=== PATIENT | female | born 1950 | race Caucasian/White ===

== ENCOUNTER 2020-06-13 11:10 | Outpatient (REF) | payer MEDICARE, OTHER, SELFPAY ==
[2020-06-13 11:38] LABS: MANUAL DIFF FLAG NO
[2020-06-13 11:54] LABS: Basophils Percent Auto 0.4 % (0-2); Eosinophils Absolute Auto 0.1 X10*3/uL (0.0-0.4); Eosinophils Percent Auto 1.8 % (0-4); Hematocrit 43.7 % (37-47); Hemoglobin 13.9 g/dl (12.0-16.0); Imm Gran Abs Auto 0.02 X10*3/uL (0.00-0.03); Imm Gran Pct Auto 0.3 % (0.0-0.4); Lymphocytes Percent Auto 29.4 % (20-40); Mean Corpuscular HGB Conc 31.8 g/dl (31.0-35.0); Mean Corpuscular Hemoglobin 28.7 pg (27.0-33.0); Mean Corpuscular Volume 90.1 fL (80-98); Mean Platelet Volume 10.5 fL (9.4-12.3); Monocytes Absolute Auto 0.7 X10*3/uL (0.1-1.2); Monocytes Percent Auto 9.6 % (2-11); Neutrophils Percent Auto 58.5 % (45-73); Platelet Count 222 X10*3/uL (160-400); Red Blood Count 4.85 X10*6/uL (4.20-5.50); White Blood Count 6.8 X10*3/uL (4.8-10.8)
[2020-06-13 12:29] LABS: Estimated Average Glucose 111 mg/dL; Hemoglobin A1C 136.7238 umol/L; Hemoglobin A1c % 5.5 %
[2020-06-13 12:36] LABS: Vitamin D 25-OH Total 38.7 ng/mL (>30)
[2020-06-13 12:38] LABS: Alanine Aminotransferase 26 U/L (0-31); Albumin Level 4.3 g/dL (3.5-5.0); Alkaline Phosphatase 73 U/L (39-117); Anion Gap 15 (12-20); Aspartate Amino Transferase 23 U/L (5-31); Bilirubin Total 0.6 mg/dL (0.0-1.0); Blood Urea Nitrogen 21 mg/dL (9-16); Calcium 9.3 mg/dL (8.4-10.2); Carbon Dioxide 24 mmol/L (22-29); Chloride 107 mmol/L (96-108); Cholesterol 194 mg/dL; Estimated Glomerular Filt Rate > 60; Glucose Fasting 124 mg/dL (60-99); HDL Cholesterol 45 mg/dL; LDL Cholesterol Calculated 131 mg/dl; Potassium 4.2 mmol/L (3.3-5.1); Sodium 142 mmol/L (135-145); Total Protein 6.7 g/dL (6.5-8.0); Triglycerides 90 mg/dL
== END 2020-06-13 11:11 | disposition home or self-care (01) ==
LOC: HO.10HDL 11:10
PROVIDERS: Visit Provider Internal Medicine
DX: I10 Essential (primary) hypertension (principal); R60.9 Edema, unspecified; J45.909 Unspecified asthma, uncomplicated; K21.9 Gastro-esophageal reflux disease without esophagitis; E78.00 Pure hypercholesterolemia, unspecified; E55.9 Vitamin D deficiency, unspecified; R73.03 Prediabetes
CPT/HCPCS: 36415; 80053; 80061; 82306; 83036; 85025

== ENCOUNTER → 2021-03-13 11:32 | Outpatient (REF) | payer MEDICARE, OTHER, SELFPAY ==
--- NOTE | 2021-03-13 11:40 | CA_ITS ---
Transthoracic Echocardiogram Patient (Last, First, Middle): Emily Cifuentes, Gender: Female Date of : 1950 Age: 71 Procedure Date: 03/13/2021 Procedure Type: Transthoracic Echocardiogram Location: OP Height: 160.02 cm Weight: 119.3 kg BSA: 2.17 m2 Heart Rate: bpm BP: 148 / 78 mmHg Admitting Officer: RICARDO Referring MD: Hernan Lyons MD Order Takers Supervisor: Alexandr Candelaria MD Symptoms: I26.99 S/P PE OTHER PULMONARY EMBOLISM Study Quality: Fair ECG Rhythm: Sinus Conclusions: - 1. Normal LV systolic function with normal filling pattern 2. Mildly dilated right sided chambers with normal RV systolic function 3. Poor visulaization of cardiac valves with normal cardiac valvular Dopplers 4. Normal RVSP Findings Left Ventricle Normal left ventricular size, thickness, and systolic function. The visually estimated ejection fraction is between 60-65%. Spectral Doppler is indicative of a normal filling pattern. Right Ventricle Mildly increased right ventricular cavity size. There is normal right ventricular systolic function. Atria The left atrium is likely dilated. Interatrial shunt cannot be excluded. The right atrium is mildly dilated. Aortic Valve The aortic valve was not well visualized. There is no aortic valve stenosis. There is no aortic valve regurgitation. Mitral Valve The mitral valve was not well visualized. There is trace mitral valve regurgitation. There is no mitral valve stenosis. Pulmonic Valve The pulmonic valve was not well visualized. Tricuspid Valve The tricuspid valve was not well visualized. There is mild tricuspid valve regurgitation. The right ventricular systolic pressure is normal. The right ventricular systolic pressure is 24 mmHg. Normal right atrial pressure. There is no evidence of pulmonary hypertension. Great Vessels All visible segments of the aorta are normal in size. The pulmonary artery was not well visualized. Venous The inferior vena cava is normal in size and collapses greater than 50% with inspiration. Pericardium/Pleural There is no evidence of pericardial effusion. Prior Study Comparison No prior study available for comparison. Measurements 2D Linear Measurements IVSd: 0.86 0.6-0.9/0.6-1.0 cm LVIDd: 5.56 3.9-5.3/4.2-5.9 cm LVIDd Index: 2.56 2.4-3.2/2.2-3.1 cm/m2 LVIDs: 3.88 2.0-3.6 cm LVPWd: 0.87 0.7-1.1 cm Ao Root: 2.90 2.1-3.5 cm LA Diam: 4.00 2.7-3.8/3.0-4.0 cm LAIDs Index: 1.84 1.5-2.3 cm/m2 LV Mass: 223.17 67-162/88-224 g LV Mass Index: 102.84 43-95/49-115 g/m2 LVOT Diam: 1.90 3.0+(-)1.3 cm 2D Systolic Function EF 4C: 61.90 >55% EF 2C: 68.30 >55% EF BiP: 66.20 >55% Mitral Valve MV Pk E: 1.19 MV PK A: 1.02 MV Decel Time: 222.00 E/A: 1.20 E'Lateral: 10.70 E'Medial: 7.51 E/E' Med: 15.80 E/E' Lat: 11.10 PHT: 65.00 MVA PHT: 3.38 Decel Guadalupe: 5.35 Aortic Valve AoV Pk Alberto: 1.78 AoV Mn Alberto: 1.18 AoV VTI: 0.40 AoV Pk Grad: 13.00 Aov Mn Grad: 6.00 HUGH Cont.VTI: 2.33 LVOT LVOT Pk Alberto: 1.33 LVOT Mn Alberto: 0.96 LVOT VTI: 0.33 LVOT Pk Grad: 7.00 LVOT Mn Grad: 4.00 LVOT Diam: 1.90 LVOT Area: 2.84 Diastolic Function MV Pk E: 1.19 MV Pk A: 1.02 E/A: 1.20 E'Medial: 7.51 E/E' Med: 15.80 E' Laterial: 10.70 E/E' Lat: 11.10 Right Ventricle TAPSE (mm): 25.90 TVS' Alberto: 14.40 Tricuspid Valve TR Pk Albetro: 2.29 TR Pk Grad: 21.00 RA Press: 3.00 RVSP: 24.00 Great Vessels Aorta Ao Root-2D: 2.90 2.0-3.7 cm Ao Asc: 2.90 2.1-3.4 cm Ao Arch: 2.90 Updated in Other Vendor System with Status of Final Alexandr Candelaria MD electronically signed on 03/14/2021 7:35:27 AM with status of Final
== END ==
LOC: HO.CARD 11:32
PROVIDERS: PCP Internal Medicine; Visit Provider Internal Medicine
DX: I26.99 Other pulmonary embolism without acute cor pulmonale (principal)
CPT/HCPCS: 93306

== ENCOUNTER 2021-12-11 10:04 | Outpatient (REF) | payer MEDICARE, OTHER, SELFPAY ==
[2021-12-11 10:24] LABS: MANUAL DIFF FLAG NO
[2021-12-11 10:32] LABS: Basophils Percent Auto 0.7 % (0-2); Eosinophils Absolute Auto 0.1 X10*3/uL (0.0-0.4); Eosinophils Percent Auto 2.3 % (0-4); Hematocrit 45.2 % (37.0-47.0); Hemoglobin 14.6 g/dl (12.0-16.0); Imm Gran Abs Auto 0.02 X10*3/uL (0.00-0.03); Imm Gran Pct Auto 0.3 % (0.0-0.4); Lymphocytes Absolute Auto 2.3 X10*3/uL (1.2-4.9); Mean Corpuscular HGB Conc 32.3 g/dl (31.0-35.0); Mean Corpuscular Hemoglobin 28.6 pg (27.0-33.0); Mean Corpuscular Volume 88.6 fL (80.0-98.0); Mean Platelet Volume 10.4 fL (9.4-12.3); Monocytes Absolute Auto 0.7 X10*3/uL (0.1-1.2); Monocytes Percent Auto 10.9 % (2-11); Neutrophils Absolute Auto 2.9 x10*3/uL (2.0-8.3); Neutrophils Percent Auto 47.8 % (45-73); Platelet Count 209 X10*3/uL (160-400); Red Cell Distribution Width 15.3 % (11.0-16.0)
[2021-12-11 11:05] LABS: Alanine Aminotransferase 21 U/L (0-31); Albumin Level 4.2 g/dL (3.5-5.0); Alkaline Phosphatase 71 U/L (39-117); Anion Gap 15 (12-20); Aspartate Amino Transferase 20 U/L (5-31); Bilirubin Total 0.9 mg/dL (0.0-1.0); Blood Urea Nitrogen 19 mg/dL (9-16); C Reactive Protein 0.73 mg/dL (< or = 0.50); Calcium 9.3 mg/dL (8.4-10.2); Carbon Dioxide 24 mmol/L (22-29); Chloride 106 mmol/L (96-108); Estimated Glomerular Filt Rate > 60; Glucose Fasting 114 mg/dL (60-99); Potassium 4.3 mmol/L (3.3-5.1); Sodium 141 mmol/L (135-145); Total Protein 6.6 g/dL (6.5-8.0)
[2021-12-11 14:07] LABS: Appearance Urine Clear; Color Urine Yellow; Glucose Urine UA Negative (Negative); Leukocyte Esterase Urine Negative (Negative); Nitrite Urine Negative (Negative); PH 5.5 (5.0-9.0); Specific Gravity - Urine >= 1.030 (1.005-1.025); Urine Blood Negative (Negative); Urine Ketones Negative (Negative); Urine Protein Negative (Neg-Trace)
== END 2021-12-11 10:05 | disposition home or self-care (01) ==
LOC: HO.10HDL 10:04
PROVIDERS: Visit Provider Internal Medicine
DX: R30.0 Dysuria (principal); I10 Essential (primary) hypertension; R10.9 Unspecified abdominal pain
CPT/HCPCS: 36415; 80053; 81003; 85025; 86140; 87086

== ENCOUNTER 2021-12-14 11:51 | Outpatient (REF) | payer MEDICARE, OTHER, SELFPAY ==
--- NOTE | ~2021-12-14 | US_ITS ---
EXAMINATION: US ABDOMEN COMPLETE CLINICAL INFORMATION: Acute abdominal discomfort. COMPARISON: CT abdomen and pelvis 08/27/2017 TECHNIQUE: Real-time imaging of the abdominal viscera. Technically difficult study secondary to body habitus. FINDINGS: PANCREAS: Normal. ABDOMINAL AORTA: The proximal, mid, and distal segments are normal in caliber. INFERIOR VENA CAVA: Visualized portions are normal. LIVER: The liver is normal in size. The liver contour is normal. Liver echotexture is increased. No focal hepatic lesion. There is no intrahepatic biliary duct dilatation seen. GALLBLADDER: Surgically absent. COMMON BILE DUCT: Not well visualized. The visualized common bile duct is normal in caliber measuring 0.6 cm in diameter. RIGHT KIDNEY: Normal. No hydronephrosis. No renal calculi or focal parenchymal lesions. The kidney measures 10.6 cm in maximum dimension. LEFT KIDNEY: Normal. No hydronephrosis. No renal calculi or focal parenchymal lesions. The kidney measures 12.4 cm in maximum dimension. SPLEEN: Normal. The spleen measures 9.9 cm in maximum dimension. FREE FLUID: None. US/US abdomen complete IMPRESSION: Echogenic liver representing fatty infiltration.
== END 2021-12-14 11:52 | disposition home or self-care (01) ==
LOC: HO.US 11:51
PROVIDERS: Visit Provider Internal Medicine
DX: R10.0 Acute abdomen (principal)
CPT/HCPCS: 76700

== ENCOUNTER 2024-02-20 15:31 | Outpatient (REF) | payer MEDICARE, OTHER, SELFPAY ==
[2024-02-20 15:48] LABS: MANUAL DIFF FLAG NO
[2024-02-20 16:09] LABS: Basophils Absolute Auto 0.1 X10*3/uL (0.0-0.2); Basophils Percent Auto 0.6 % (0-2); Eosinophils Absolute Auto 0.1 X10*3/uL (0.0-0.4); Eosinophils Percent Auto 0.7 % (0-4); Hematocrit 45.4 % (37.0-47.0); Hemoglobin 14.7 g/dl (12.0-16.0); Imm Gran Abs Auto 0.02 X10*3/uL (0.00-0.03); Imm Gran Pct Auto 0.2 % (0.0-0.4); Lymphocytes Percent Auto 22.4 % (20-40); Mean Corpuscular HGB Conc 32.4 g/dl (31.0-35.0); Mean Corpuscular Hemoglobin 29.2 pg (27.0-33.0); Mean Corpuscular Volume 90.3 fL (80.0-98.0); Mean Platelet Volume 10.2 fL (9.4-12.3); Monocytes Absolute Auto 0.8 X10*3/uL (0.1-1.2); Monocytes Percent Auto 9.1 % (2-11); Platelet Count 239 X10*3/uL (160-400); Red Blood Count 5.03 X10*6/uL (4.20-5.50)
[2024-02-20 16:14] LABS: Estimated Average Glucose 114 mg/dL; Hemoglobin A1C 139.6391 umol/L; Hemoglobin A1c % 5.6 % (<6.0); Total Hemoglobin (HGBA1C) 3744.0824 umol/L
[2024-02-20 16:56] LABS: Alanine Aminotransferase 25 U/L (0-31); Albumin Level 4.3 g/dL (3.5-5.0); Anion Gap 12 (12-20); Aspartate Amino Transferase 27 U/L (5-31); Bilirubin Total 0.9 mg/dL (0.0-1.0); Blood Urea Nitrogen 21 mg/dL (9-16); Calcium 10.2 mg/dL (8.4-10.2); Carbon Dioxide 26 mmol/L (22-29); Chloride 108 mmol/L (96-108); Estimated Glomerular Filt Rate > 60; Glucose Random 111 mg/dL (60-115); Magnesium 2.3 mg/dL (1.6-2.6); Potassium 4.4 mmol/L (3.3-5.1); Sodium 142 mmol/L (135-145); Total Protein 7.6 g/dL (6.5-8.0)
[2024-02-20 17:07] LABS: Alkaline Phosphatase 60 U/L (39-117)
[2024-02-20 17:12] LABS: Free T4 (Free Thyroxine) 1.32 ng/dL (0.71-1.85); Thyroid Stimulating Hormone 0.91 uIU/mL (0.32-4.0)
--- OUTSIDE RECORDS SUMMARY | 2024-02-20 17:22 | XMS_ITS | Continuity of Care Document ---
Author Organization [facility] [place] Clinical Address [facility] [address] Care Team Providers Care Eclectic Doctor Name Role Phone CHAUNCEY CLAY Primary Care Provider Assessment No assessment recorded. Plan of Treatment Reminders Order Date Submit Date Provider Last Modified By Organization Details Last Modified Time Details Appointments DIGIT TRIAGE ONLY 2024 10:15A M Sheron escalante PA-C Not available Not available Not available INJECTION ONLY 15 2024 09:00A M Siva Calloway PA-C Not available Not available Not available RECHECK 15 2024 10:00A M Sheron escalante PA-C Not available Not available Not available Lab None recorded. Referral None recorded. Procedures None recorded. Surgeries None recorded. Imaging None recorded. Medication Orders None recorded. Patient TargetsNo targets recorded. Patient InstructionsNo instructions recorded. Reason for Referral None Reported. Problems Name Problem SNOMED Code Status Onset Date Resolution Date Notes Provider Name and Address Organization Details Recorded Time Pain in left lower limb 088459408 Active 2023 [facility] 4 10:05:24 Knee joint prosthesi s present 880122051674 Active 2017 Problem Code: Z96.651; Problem Code Type: ICD-10; Status: 'A'; Not Available [facility] 11[facility]27[facility] Problem Notes None recorded. Procedures Surgical History Date Name Laterality Status Provider Name and Address Organization Details Recorded Time 01/02/2024 Sports Knee 4&1 completed Siva Calloway PA-C [address], [place], [address], [facility] 01/02/2024 07:27:34 09/19/2023 Sports Knee 4&1 completed Siva Calloway PA-C [address], [place], [address], [facility] 09/19/2023 12:14:59 06/20/2023 Sports Knee 4&1 completed Siva Calloway PA-C [address], [place], [address], [facility] 06/20/2023 07:46:54 Imaging Results None recorded. Procedure Notes None recorded. Medical Equipment None Reported. Allergies Allergen ID Allergen Name Allergen Category Reaction Reaction Severity Criticality Documentation Date Start Date Code Code System Note Provider Name and Address Organization Details Recorded Time 231813 Dilaudid medicatio n Not available Not available Not available 02/20/2024 21781 3 RxNorm Mars Anthony [facility] 5 10:17:27 [id number] codeine medicatio n Not available Not available Not available 02/20/2024 2670 RxNorm Mars Anthony [facility] 5 10:17:31 Medications Name Sig Start Date Stop Date Status Note LastModified by Organization Details LastModified Time losartan 50 mg tablet TAKE 1 TABLET TWICE A DAY active Not Available Not Available No t Available amoxicillin 500 mg tablet TAKE 4 TABLETS ONE HOUR PRIOR TO DENTAL VISIT active Not Available Not Available No t Available ciclopirox 8 % topical solution PLEASE SEE ATTACHED FOR DETAILED DIRECTION S active Not Available Not Available No t Available famotidine 20 mg tablet active Not Available Not Available Not Available econazole 1 % topical cream APPLY TO AFFECTED AREA TWICE A DAY NEEDED active Not Available Not Available No t Available nystatin 100,000 unit/gram topical cream APPLY TWICE DAILY TO AFFECTED AREAS ON GROIN, ABDOMEN AND BREASTS. active Not Available Not Available No t Available buspirone 10 mg tablet TAKE 1 TABLET BY MOUTH TWICE A DAY NEEDED active Not Available Not Available No t Available clotrimazol e-betametha sone 1 %-0.05 % topical cream active Not Available Not Available Not Available hydrochloro thiazide 12.5 mg capsule TAKE 1 CAPSULE DAILY active Not Available Not Available No t Available omeprazole 20 mg capsule,del ayed release TAKE 1 CAPSULE DAILY active Not Available Not Available No t Available mupirocin 2 % topical ointment APPLY TOPICALLY TWICE DAILY WITH DRESSING CHANGES UNTIL WOUND IS HEALED active Not Available Not Available No t Available chlorhexidi ne gluconate 0.12 % mouthwash SWISH X 1 MINUTE WITH 1 CAPFUL AND SPIT ONCE DAILY DIRECTED active Not Available Not Available No t Available Dyazide Dyazide 37.5-25MG Capsule once a day 02/19 completed Statu s: 'Curr ent'; Not Available Not Available Not Available oxycodone HCl-oxycodo ne-ASA 1-2 q [address] WHILE TAKING MEDICATIO N 09/28 completed Statu s: 'Disc ontin ued'; Not Available Not Available Not Available GaviLyte-G 236 gram-22.74 gram-6.74 gram-5.86 gram oral solution TAKE 8 OUNCE BY MOUTH DIRECTED active Not Available Not Available No t Available Eliquis 5 mg tablet TAKE 1 TABLET TWICE A DAY active Not Available Not Available No t Available Vitals Date Recorded Body height Provider Name an d Address Organization Details Last Updated DateTime 01/02/2024 162.56 cm SHU RHOADES [place] [facility] [place] [facility] 01/02/2024 09:27:41 Social History None recorded. Functional Status None recorded. Mental Status None recorded. Family History Nothing Reported. Medical History Condition Response Pulmonary Embolism Y Gynecological HistoryNo gynecological history recorded. Obstetrics History GPAL:G 0 P 0 0 0 0 Past Encounters Encounter ID Performer Location Encounter Start Date Encounter Closed Date Diagnosis/Indication Diagnosis SNOMED-CT Code Diagnosis ICD10 Code Diagnosis Note [id number] [facility] [address] [place] [address] 01/02/2024 09:24:02 01/27/2024 09:19:46 Osteoarthritis of left knee joint 3450228304 21141 M17.12 Health Concerns Section Related Observation LastModified by Organization Detai ls LastModified Time None Recorded Concern Status LastModified by Organization Details LastModified Time None Recorded Payers Encounter Date Sequence Insurance Name Policy Number Policy Mckeon Covered Member ID Mckeon Member ID Guarantor Name 01/02/2024 1 [place] [employer] Emily Cifuentes [id number] Emily Cifuentes 01/02/2024 2 [facility] [id number] Emily Cifuentes [id number] Emily Cifuentes Notes Date Note Type Note Provider Name and Address Organization Details Recorded Time 01/02/2024 text/html I am seeing the patient today under the supervision of {{Leti* Melvin }} who was available but who did not see the patient. Chief Complaint The patient presents today for recheck of {{left* right}} knee osteoarthritis. Is known to have knee arthritis treated conservatively to this point with {{1 2* 3}} months relief of symptoms. Presents today for recheck secondary to increased knee pain. Past Medical/Surgical History Reviewed today, otherwise unchanged per intake sheet. Physical Findings General Appearance: ?? Well developed. ?? In no acute distress. Musculoskeletal System: Knee: General/bilateral: ?? No laxity of the knee. Right Knee: ? ? Medial aspect was tender on palpation. ?? No erythema. ?? No warmth. Left Knee: ? ? Medial aspect was tender on palpation. ?? No erythema. ?? No warmth. Musculoskeletal Scales: General/bilateral: ? ? Mild effusion noted. Neurological: ?? Oriented to time, place, and person. Gait And Stance: ?? Normal. Psychiatric: ?? Mood was appropriate to the affect. Left knee 0-120 degrees of flexion with discomfort. Assessment ? ? Osteoarthritis of knee - Plan More than 50% of todays visit was spent on direct patient counseling regarding their knee condition and treatment options both operative with knee arthroplasty and non-operative, including oral medications and injection therapy. After discussion, my clinical decision was to go forth with an intra-articular cortisone injection. After explaining risks and benefits, under meticulous aseptic technique, the knee was injected with, 1cc of Kenalog 40mgs and 4 cc of Marcaine 1/4%. They tolerated the procedures well. Post injection precautions reviewed. Follow up with us in 3 months for further discussion of total knee replacement surgery versus continued conservative treatment. [address], [place], [address], [facility] [place] [facility] 01/02/2024 12:16:59 OBGyn Episode No OBEpisode recorded.
--- OUTSIDE RECORDS SUMMARY | 2024-02-20 17:22 | XMS_ITS | Data Portability ---
Author Organization [facility], [employer] Address [address] [place] [address] Care Team Providers Care Testing Tech Name Role Phone CHAUNCEY CLAY Primary Care Provider Assessment No assessment recorded. Plan of Treatment Reminders Order Date Submit Date Provider Last Modified By Organization Details Last Modified Time Details Appointments DIGIT TRIAGE ONLY 2024 10:15A M Sheron escalante PA-C Not available Not available Not available INJECT ION ONLY 15 2024 09:00A M Siva Calloway PA-C Not available Not available Not available RECHEC K 15 2024 10:00A M Sheron escalante PAPippaC Not available Not available Not available Lab None record ed. Referral None record ed. Procedures None record ed. Surgeries None record ed. Imaging US, duplex , venous , lower extrem ity - Left Lower ext u/s pain and swelli ng 2023 024 [email or web address] [facility], [address], [place], [address], 10/11/2023 10:12:44 XR, wrist, 3 or more view - rm 306 3v right wrist 2024 025 ladarius [facility], [address], [facility] [address], [address], 02/20/2024 10:55:32 Medication Orders None record ed. Patient TargetsNo targets recorded. Patient Instructions Encounter Date Encounter Id Patient Instructions Last Modified By Organization Details Last Modified Time 02/20/2024 application of cast, short arm cast* - rm 306 right wrist sac 2/3rds up forearm, pt requested waterproof; aware of extra cost Not available 02/20/2024 11:23:26 Reason for Referral None Reported. Results Created Date Observation Date Name Description Value Unit Range Abnormal Flag Note LastModifiedBy Organization Detail LastModifiedTime 09/20/19 24 09/19/2023 US, duple x, venou s, lower extre mity No observ ation record ed. [facility] [address], [place], [address], 09/20/2023 13:48:53 Result Notes None recorded. Problems Name Problem SNOMED Code Status Onset Date Resolution Date Notes Provider Name and Address Organization Details Recorded Time Pain in left lower limb 048092904 Active 2023 DELBERT ventura [facility] 10:05:24 Knee joint prosthesi s present 362234441327 Active 2017 Problem Code: Z96.651; Problem Code Type: ICD-10; Status: 'A'; Not Available [facility] 11:27:34 Problem Notes None recorded. Procedures Surgical History Date Name Laterality Status Provider Name and Address Organization Details Recorded Time 01/02/2024 Sports Knee 4&1 completed Siva Calloway PA-C [address] [facility], [place], [address], [facility] 01/02/2024 07:27:34 09/19/2023 Sports Knee 4&1 completed Siva Calloway PA-C [address], [place], [address], [place] [facility] 09/19/2023 12:14:59 06/20/2023 Sports Knee 4&1 completed Siva Calloway PA-C [address], [place], [address], [facility] 06/20/2023 07:46:54 Imaging Results Imaging Date Name Status LastModified by Organiz ation Details LastModified Time 09/19/2023 US, duplex, venous, lower extremity completed VALENCIA [facility] [address], [place], [address], 09/20/2023 13:48:53 Procedure Notes None recorded. Medical Equipment None Reported. Allergies Allergen ID Allergen Name Allergen Category Reaction Reaction Severity Criticality Documentation Date Start Date Code Code System Note Provider Name and Address Organization Details Recorded Time 116806 Dilaudid medicatio n Not available Not available Not available 02/20/2024 73555 3 RxNorm Mars [facility] 10:17:27 366230 codeine medicatio n Not available Not available Not available 02/20/2024 2670 RxNorm Mars Anthony [facility] 10:17:31 Medications Name Sig Start Date Stop [...] t Available Vitals Date Recorded Body height Body mass index (BMI) Body weight Provider Name and Address Organization Details Last Updated DateTime 06/20/2023 162.56 cm 42.9 kg/m2 586623.09 g DELBERT BUSTILLOY [facility] 06/20/2023 09:01:25 Date Recorded Body height Body mass index (BMI) Body weight Provider Name and Address Organization Details Last Updated DateTime 09/19/2023 162.56 cm 42.9 kg/m2 873235.09 g DELBERT DELA CRUZ [facility] 09/19/2023 09:37:53 Date Recorded Body height Provider Name an d Address Organization Details Last Updated DateTime 01/02/2024 162.56 cm SHU JF [facility] 01/02/2024 09:27:41 Date Recorded Body height Body mass index (BMI) Body weight Provider Name and Address Organization Details Last Updated DateTime 02/20/2024 162.56 cm 42.9 kg/m2 819084.09 g Mars Anthony [facility] 02/20/2024 10:16:48 Social History None recorded. Functional Status None recorded. Mental Status None recorded. Family History Nothing Reported. Medical History Condition Response Pulmonary Embolism Y Gynecological HistoryNo gynecological history recorded. Obstetrics History GPAL:G 0 P 0 0 0 0 Past Encounters Encounter ID Performer Location Encounter Start Date Encounter Closed Date Diagnosis/Indication Diagnosis SNOMED-CT Code Diagnosis ICD10 Code Diagnosis Note [id number] [facility] [address] [place] [address] 06/20/2023 08:53:57 07/13/2023 11:07:52 Osteoarthritis of left knee joint 1754422705 49635 M17.12 [id number] RO[facility] [address] [place] [address] 09/19/2023 09:23:49 10/11/2023 10:12:44 Pain in left lower limb 650266467 M79.605 Osteoarthr itis of left knee joint 8047371288 82680 M17.12 [id number] RO[facility] [address] [place] [address] 01/02/2024 09:24:02 01/27/2024 09:19:46 Osteoarthritis of left knee joint 6875905437 68332 M17.12 [id number] ROSEANN Goetz [address]rd floor [address] [facility] [place] [address] 02/20/2024 10:04:28 02/20/2024 10:54:13 Closed fracture of right wrist 5562622135 8795527 S62.101D Health Concerns Section Related Observation LastModified by Organization Detai ls LastModified Time None Recorded Concern Status LastModified by Organization Details LastModified Time None Recorded Advance Directives Directive None Recorded Payers Encounter Date Sequence Insurance Name Policy Number Policy Mckeon Covered Member ID Mckeon Member ID Guarantor Name 06/20/2023 1 [place] B-[place]: [facility] [employer] Emily Cifuentes [id number] Emily Cifuentes 06/20/2023 2 [employer] - UNICARE [id number] Emily Cifuentes [id number] Emily Cifuentes 09/19/2023 1 [place] [facility] [employer] Emily Cifuentes [id number] Emily Cifuentes 09/19/2023 2 [employer]AN - [employer] [id number] Emily Cifuentes [id number] Emily Cifuentes 01/02/2024 1 [place] [facility] SERVICES Emily Cifuentes [id number] Emily Cifuentes 01/02/2024 2 [facility] [id number] Emily Cifuentes [id number] Emily Cifuentes 02/20/2024 1 [place]: [facility] Emily Cifuentes [id number] Emily Cifuentes 02/20/2024 2 [facility] [id number] Emily Cifuentes [id number] Emily Cifuentes Notes Date Note Type Note Provider Name and Address Organization Details Recorded Time 06/20/2023 text/html I am seeing the patient today under the supervision of {{Leti Charles*} } who was available but who did not see the patient. Chief Complaint The patient presents today for recheck of {{left* right}} knee osteoarthritis. Is known to have knee arthritis treated conservatively to this point with {{1 2 3*}} months relief of symptoms. Presents today for [...] knee replacement surgery versus continued conservative treatment. Siva Calloway PA-C [address] [facility] [address], [place], [address], [place] [facility] 06/20/2023 17:16:15 09/19/2023 text/html I am seeing the patient today under the supervision of {{Leti* Melvin} } who was available but who did not see the patient. Chief Complaint The patient presents today for recheck of {{left* right}} knee osteoarthritis. Is known to have knee arthritis treated conservatively to this point with {{1 2* 3}} months relief of symptoms. Presents today for recheck secondary to increased knee pain. She is also complaining today of left calf pain. Does have a history of DVT on the side. Past Medical/Surgical History Reviewed today, otherwise unchanged [...] Mood was appropriate to the affect. Left calf exam reveals tenderness to palpation. Positive Homans test. Left knee 0-120 degrees of flexion with [...] knee replacement surgery versus continued conservative treatment. Would recommend an ultrasound left lower extremity rule out DVT. Siva Calloway PA-C [address], [place], [address], [facility] 09/19/2023 12:15:26 01/02/2024 text/html I am seeing the patient today under the supervision of {{Leti* Melvin} } who was available but who did not [...] knee replacement surgery versus continued conservative treatment. Siva Calloway PA-C [address], [place], [address], [facility] 01/02/2024 12:16:59 02/20/2024 text/html I am seeing the patient today under the supervision of Dr. Acosta who was available but who did not see the patient. Attending physician: Dr. Gonzalez HPI: Patient is a pleasant 74-year-old female who sustained a slip and fall on a wet hardwood floor on 02/13/2024. She injured her right wrist. She was seen at [facility] emergency department and had x-rays of the wrist that showed a suspected nondisplaced fracture. She has been in a wrist immobilizer brace. She reports only mild pain. She reports mild swelling. She also bruised her left knee. Denies paresthesias. Past family, medical, social history and review of systems have been reviewed and updated on the medical history sheet saved to the patient's chart. Review of systems is negative except as noted above and/or on the medical history sheet. Examination: The patient is well appearing and in no apparent distress. Alert and oriented x3. Right wrist exam demonstrates mild swelling with ecchymosis noted dorsally over the ulnar aspect of the wrist and dorsum of the hand. Full digital range of motion. Wrist range of motion is limited. Tender to palpation throughout the right distal radius dorsally. Nontender at the anatomic snuffbox. Nontender at the distal ulna. Neurovascularly intact. Peripheral vascular, lymphatic examination, skin, neurological, coordination, sensation are within normal limits unless otherwise noted above. X-rays ordered, obtained and reviewed at [facility] 3 views of the right wrist demonstrate nondisplaced mildly impacted right distal radius transverse extra-articular fracture. No additional fractures are noted. Impression: 74-year-old female with nondisplaced impacted extra-articular right distal radius fracture 02/13/2024 Plan: Findings discussed with the patient. We discussed that in its present alignment her fractures amenable to nonsurgical treatment and I have recommended a short arm cast. She has requested a waterproof cast, if possible. She will be leaving shortly to go to [place] for a month. I have advised her that she should wear the cast for 4 weeks. She can have it removed in [place]. She is comfortable with arranging follow-up for this herself at a local urgent care or orthopedist in [place]. I will see her back upon her return to the area in 6-8 weeks for new x-rays 3 views of the right wrist. If she has stiffness, weakness, or continued discomfort at that time we will likely refer her to occupational therapy for wrist range of motion and strengthening. Questions answered. [facility] speech recognition assistant track and field coach software was used to create portions of this document. An attempt at proofreading has been made to minimize errors. Please call for corrections. Sheron Vinson PA-C [address] [facility] [address], [place], [address], [facility] 02/20/2024 10:54:11 OBGyn Episode No OBEpisode recorded.
--- OUTSIDE RECORDS SUMMARY | 2024-02-20 17:22 | XMS_ITS | Continuity of Care Document ---
Author Organization [facility], GARRETT Johnson 3rd floor Address [address] [place] [address] Care Team Providers Care Jig Grinder Name Role Phone CHAUNCEY CLAY Primary Care Provider [phone] Assessment No assessment recorded. Plan of Treatment Reminders Order Date Submit Date Provider Last Modified By Organization Details Last Modified Time Details Appointments DIGIT TRIAGE ONLY 2024 10:15A M Sheron escalante PA-C Not available Not available Not available INJECT ION ONLY 15 2024 09:00A M Siva Calloway PA-C Not available Not available Not available RECHEC K 15 2024 10:00A M Sheron escalante PA-C Not available Not available Not available Lab None record ed. Referral None record ed. Procedures None record ed. Surgeries None record ed. Imaging XR, wrist, 3 or more view - rm 306 3v right wrist 2024 025 ladarius [facility], [address], [place], [address], 02/20/2024 10:55:32 Medication Orders None record ed. Patient TargetsNo targets recorded. Patient Instructions Encounter Date Encounter Id Patient Instructions Last Modified By Organization Details Last Modified Time 02/20/2024 [id number] application of cast, short arm cast* - rm 306 right wrist sac 2/3rds up forearm, pt requested waterproof; aware of extra cost [id number] Not available 02/20/2024 11:23:26 Reason for Referral None Reported. Problems Name Problem SNOMED Code Status Onset Date Resolution Date Notes Provider Name and Address Organization Details Recorded Time Pain in left lower limb 936586998 Active 2023 DEL[facility]ERT [facility] 4 10:05:24 Knee joint prosthesi s present 189547249773 Active 2017 Problem Code: Z96.651; Problem Code Type: ICD-10; Status: 'A'; Not Available [facility] 4 11:27:34 Problem Notes None recorded. Procedures Surgical History Date Name Laterality Status Provider Name and Address Organization Details Recorded Time 01/02/2024 Sports Knee 4&1 completed Siva Calloway PA-C [address], [place], [address], [facility] 01/02/2024 07:27:34 09/19/2023 Sports Knee 4&1 completed Siva Calloway PA-C [address], [place], [address], [facility] 09/19/2023 12:14:59 06/20/2023 Sports Knee 4&1 completed Siva Calloway PA-C [address], [place], [address], [facility] 06/20/2023 07:46:54 Imaging Results None recorded. Procedure Notes None recorded. Medical Equipment None Reported. Allergies Allergen ID Allergen Name Allergen Category Reaction Reaction Severity Criticality Documentation Date Start Date Code Code System Note Provider Name and Address Organization Details Recorded Time 055942 Dilaudid medicatio n Not available Not available Not available 02/20/2024 23264 3 RxNorm Mars Anthony [facility] 5 10:17:27 765956 codeine medicatio n Not available Not available Not available 02/20/2024 2670 RxNorm Mars Anthony [facility] 5 10:17:31 Medications Name Sig Start Date [...] Updated DateTime 02/20/2024 162.56 cm 42.9 kg/m2 641340.09 g Mars Anthony [place] [facility] 02/20/2024 10:16:48 Social History None recorded. Functional Status None recorded. Mental Status None recorded. Family History Nothing Reported. Medical History Condition Response Pulmonary Embolism Y Gynecological HistoryNo gynecological history recorded. Obstetrics History GPAL:G 0 P 0 0 0 0 Past Encounters Encounter ID Performer Location Encounter Start Date Encounter Closed Date Diagnosis/Indication Diagnosis SNOMED-CT Code Diagnosis ICD10 Code Diagnosis Note Sheron ROSEANN [facility] [place] [address] [place] [address] 02/20/2024 10:04:28 02/20/2024 10:54:13 Closed fracture of right wrist 4144614586 9315005 S62.101D Health Concerns Section Related Observation LastModified by Organization Detai ls LastModified Time None Recorded Concern Status LastModified by Organization Details LastModified Time None Recorded Payers Encounter Date Sequence Insurance Name Policy Number Policy Mckeon Covered Member ID Mckeon Member ID Guarantor Name 02/20/2024 1 [place]: [employer] Emily Cifuentes [id number] Emily Cifuentes 02/20/2024 2 [facility] INDEMNITY PLAN - [facility] [id number] Emily Cifuentes [id number] Emily Cifuentes Notes Date Note Type Note Provider Name and Address Organization Details Recorded Time 02/20/2024 text/html I am seeing the patient today under the supervision of Dr. Acosta who was available but who did not see the patient. Attending physician: Dr. Gonzalez HPI: Patient is a pleasant 74-year-old female who sustained a slip and fall on a wet hardwood floor on 02/13/2024. She injured her right wrist. She was seen at [facility] emergency department and had x-rays of [...] above. X-rays ordered, obtained and reviewed at [facility] 3 views of the right wrist demonstrate [...] will be leaving shortly to go to [place] for a month. I have advised her that she should wear the cast for 4 weeks. She can have it removed in [place]. She is comfortable with arranging follow-up for this herself at a local urgent care or orthopedist in [place]. I will see her back upon her return to the area in 6-8 weeks for new x-rays 3 views of the right wrist. If she has stiffness, weakness, or continued discomfort at that time we will likely refer her to occupational therapy for wrist range of motion and strengthening. Questions answered. [facility] speech recognition counselor manager software was used to create portions of this document. An attempt at proofreading has been made to minimize errors. Please call for corrections. Sheron Vinson PA-C [address], [place], [address], [facility] 02/20/2024 10:54:11 OBGyn Episode No OBEpisode recorded.
== END 2024-02-20 15:32 | disposition home or self-care (01) ==
LOC: HO.LAB 15:31
PROVIDERS: PCP Internal Medicine; Visit Provider Internal Medicine
DX: I10 Essential (primary) hypertension (principal); R73.03 Prediabetes; J45.909 Unspecified asthma, uncomplicated; R00.2 Palpitations
CPT/HCPCS: 36415; 80053; 83036; 83735; 84439; 84443; 85025

== ENCOUNTER → 2024-02-22 10:26 | Outpatient (REF) | payer MEDICARE, OTHER, SELFPAY | LOC: HO.CARD 10:26 | PROVIDERS: PCP Internal Medicine; Visit Provider Internal Medicine | DX: R00.2 Palpitations (principal) | CPT/HCPCS: 93242 ==

== ENCOUNTER → 2024-02-22 10:30 | Outpatient (BNV) | payer MEDICARE, OTHER, SELFPAY | PROVIDERS: PCP Internal Medicine; Visit Provider Internal Medicine Cardiovascular Disease | DX: I49.1 Atrial premature depolarization (principal); I49.3 Ventricular premature depolarization | CPT/HCPCS: 93244 ==

== ENCOUNTER 2024-06-15 10:17 | Outpatient (AMB) | payer MEDICARE, OTHER, SELFPAY ==
--- NOTE | 2024-06-15 10:24 | MHC.PC.OV ---
Vital Signs 06/15/24 10:32 Height 5 ft 4 in Weight 247 lb BMI 42.4 BP 124/80 Blood Pressure Location Lt brachial Position Sitting Pulse 75 Pulse Source Pulse Oximeter Temp 97.5 F Temp Source Axillary Pulse Oximetry (%) 98 Oxygen Delivery Method Room Air Intake Visit Reasons: Ed F/U A Fib - see comments Genetic Supervisor Required: No Accompanied by: Self / Same As Patient Allergies morphine Allergy (Unknown, Verified 06/15/24 10:35) Unknown hydromorphone [From DILAUDID] Adverse Reaction (Intermediate, Verified 06/15/24 10:24) vomiting Tobacco use date assessed: 06/15/24 Fall risk assessment: 1 Fall in past year Last assessed Fall Risk: 06/15/24 Dental Screening Dental Screen Date: 06/15/24 Did you have a dental visit in the last 12 months?: Yes Did you have a dental problem in the last 6 months where you did not have access to dental care?: No HPI HPI Comments History of Present Illness Details 74 year old female with a past medical history of DVT/PE on eliquis, hypertension, prediabetes, thyroid nodule, polyneuropathy, OA,asthma,spinalstenosis. presenting for ER follow up She was seen in [facility] ER on 06/07/24 for palpitations and elevated heart rate. She had been on holter outpatient. [employer] watch had picked up irregular rhythm. In ER afib with rvr. cxr normal. Rate controlled in ER with metoprolol. Sent home with metoprolol 12.5mg daily. She was seen by cardiology 06/14/24. Placed on amiodarone 200mg twice daily. Plan for cardioversion. She never received the amiodarone 400mg twice daily Colonoscopy-2018, postponed in 2023 due to tx with eliquis for VTE. She tells me that her episodes of afib are generally preceded by dyspepsia burping. She notes a history of hiatal hernia ROS see HPI PHYSICAL EXAM: GENERAL: Alert and oriented x 3. NAD EYES: EOMI. Anicteric. HENT: Moist mucous membranes. No scleral icterus. No cervical lymphadenopathy. LUNGS: Clear to auscultation bilaterally. CARDIOVASCULAR: Regular rate and rhythm. No murmur. No JVD. ABDOMEN: Soft, non-tender +bs EXTREMITIES: No edema. Non-tender. SKIN: No rashes or lesions. Warm. NEUROLOGIC: No focal neurological deficits. CN II-XII grossly intact PSYCHIATRIC: Cooperative. Appropriate mood and affect [facility] Surgical History History of colonoscopy (~05/17/18) Family History Mother CHF (congestive heart failure) Dementia Diabetes Pacemaker Father HTN (hypertension) BPH (benign prostatic hyperplasia) Social History Housing: House Patient Tobacco Use Status: Former Tobacco user e-Cigarette/Vaping Use: Former Use service: No Current occupational status: retired Cognitive needs: Yes (cane) Hearing needs: No Vision needs: Yes (rx glasses) Questionnaire PHQ-9 Over the last 2 weeks, how often have you been bothered by any of the following problems? 1. Little interest or pleasure in doing things: not at all 2. Feeling down, depressed, or hopeless: several days 3. Trouble falling or staying asleep, or sleeping too much: not at all 4. Feeling tired or having little energy: not at all 5. Poor appetite or overeating: not at all 6. Feeling bad about yourself - or that you are a failure or have let yourself or your family down: not at all 7. Trouble concentrating on things, such as reading the newspaper or watching television: not at all 8. Moving or speaking so slowly that other people could have noticed. Or the opposite - being so fidgety or restless that you have been moving around a lot more than usual: not at all 9. Thoughts that you would be better off or of hurting yourself in some way: not at all Total score: 1 Depression Screening Interpretation: Negative Depression Screening Done: Yes 79779 - PHQ-9 Billing: Yes Source: Developed by Drs. John Dee, Emily Montero, You Amaral and colleagues, with an educational priscila from [employer]. Thrive Questionnaire Date Thrive assessed: 06/15/24 I am a: Patient Within the past 12 months, did the food you bought not last and you didn't have the money to get more?: Never true Within the past 12 months, did you worry whether your food would run out before you got money to buy more?: Never true Do you have trouble paying for medicines?: No Do you have trouble getting transportation to medical appointments?: No Do you have trouble paying your heating and electricity bill?: No Do you have trouble taking care of your child, family member or friend?: No Do you have trouble with day-to-day activities such as bathing, preparing meals, shopping, managing finances, etc.?: No Are you currently unemployed and looking for a job?: No Are you interested in more education?: No THRIVE Score: 0 AUDIT C Alcohol Use Questionnaire (AUDIT-C) 1. How often do you have a drink containing alcohol?: Never 3. How often do you have six or more drinks on one occasion?: Never Total Score: 0 EUSEBIO-7 AMB Questionnaire EUSEBIO-7 Date EUSEBIO - 7 assessed: 06/15/24 Feeling nervous, anxious, or on edge: 1 = Several days Not being able to stop or control worryin = Not at all Worrying too much about different things: 0 = Not at all Trouble relaxin = Not at all Being so restless that it is hard to sit still: 0 = Not at all Becoming easily annoyed or irritable: 0 = Not at all Feeling afraid as if something awful might happen: 0 = Not at all Total EUSEBIO-7 score (0-4 normal; 5-9 mild; 10-14 moderate; 15-21 severe): 1 Source: Developed by Drs. John Dee, Emily Montero, You Amaral and colleagues, with an educational priscila from [employer]. Physical exam (Primary Care) Vital Signs: Last Vital Signs Temp 97.5 F 06/15/24 10:32 Pulse 75 06/15/24 10:32 BP 124/80 06/15/24 10:32 Pulse Ox 98 06/15/24 10:32 Oxygen Delivery Method Room Air 06/15/24 10:32 BMI result Body Mass Index 42.4 Tobacco/Smoking Status: Tobacco use Status Tobacco use date assessed 06/15/24 06/15/24 10:26 Patient Tobacco Use Status Former Tobacco user 06/15/24 10:43 e-Cigarette/Vaping Use Former Use 06/15/24 10:43 PHQ-9: PHQ-9 Score PHQ-9: Total score 1 06/15/24 11:10 Depression Screening Interpretation: Negative Thrive Assessment: Date of Thrive Assessment Date Thrive assessed 06/15/24 06/15/24 10:26 Coding Level of Care Code New Pt Level 4 (23943) Complex EM visit Add On G2211 Diagnoses Paroxysmal atrial fibrillation I48.0 Dyspepsia R10.13 Polyp of colon, unspecified part of colon, unspecified type K63.5 Colon polyp type: unspecified Colon location: unspecified part of colon Additional Codes PHQ-9 - 94885 - PHQ-9 Billing: Yes ([id number]) Assessment & Plan Assessment & Plan (1) Paroxysmal atrial fibrillation: Code(s): I48.0 - Paroxysmal atrial fibrillation Category: Medical (2) Dyspepsia: Code(s): R10.13 - Epigastric pain Category: Medical (3) Colon polyp: Code(s): K63.5 - Polyp of colon Category: Medical Qualifiers: Colon polyp type: unspecified Colon location: unspecified part of colon Qualified Code(s): K63.5 - Polyp of colon Plan Hospital follow up Paroxysmal atrial fibrillation Seems to be sets of by episodes of dyspepsia. She is overdue for colon cancer screening. GI might consider double endoscopy given dyspepsia, h/o HH. PPI daily. continue bb, AC. Orders: Orders IRON PROFILE 06/15/24 G62.9 - Polyneuropathy, unspecified, R25.2 - Cramp and spasm Vitamin B12 and Folate 06/15/24 G62.9 - Polyneuropathy, unspecified, R25.2 - Cramp and spasm Basic Metabolic Panel 06/15/24 G62.9 - Polyneuropathy, unspecified, R25.2 - Cramp and spasm Referrals Gastroenterology Referral I48.0 - Paroxysmal atrial fibrillation, K63.5 - Polyp of colon, R10.13 - Epigastric pain Medications: New lorazepam 0.5 mg PO BID PRN 30 tabs 0RF anxiety metoprolol succinate ER 12.5 mg (1/2 x 25 mg) PO DAILY 90 tabs 3RF
[2024-06-15 10:32] VITALS: BP 124/80; PULSE 75; TEMP 36.4; O2SAT 98; BMI 42.4
--- OUTSIDE RECORDS SUMMARY | 2024-06-15 11:20 | XMS_ITS | Clinical Summary ---
Author Organization [facility] Address [address] [place] [address] Phone Care Team Providers Care Fiber Analyst Name Role Phone Unavailable Primary Care Provider Unavailabl e Allergies Active Allergy Reactions Criticality Noted Date Comments Caffeine Palpitations 03/23/2024 Codeine GI intolerance 03/23/2024 Hydromorphone GI intolerance 03/23/2024 Medications nystatin (MYCOSTATIN) cream APPLY TWICE DAILY TO AFFECTED AREAS ON GROIN, ABDOMEN AND BREASTS. 08/15/2023 Active losartan (COZAAR) 50 mg tablet Take 1 tablet (50 mg total) by mouth 2 (two) times a day. 01/25/2024 Active hydroCHLOROthia zide (MICROZIDE) 12.5 mg capsule Take 1 capsule (12.5 mg total) by mouth 1 (one) time each day. 01/05/2024 Active Eliquis 5 mg tablet TAKE 2 TABLETS BY MOUTH TWICE A DAY X 7 DAYS, THEN 1 TABLET TWICE DAILY 04/04/2023 Active busPIRone (BUSPAR) 10 mg tablet Take 1 tablet (10 mg total) by mouth 2 (two) times a day if needed. 04/10/2023 Active amoxicillin (AMOXIL) 500 mg tablet TAKE 4 TABLETS ONE HOUR PRIOR TO DENTAL VISIT 12/12/2023 Active econazole nitrate 1 % cream apply to affected area twice a day as needed 08/29/2023 Active Jublia 10 % solution with applicator APPLY DAILY TO AFFECTED NAILS DIRECTED 03/12/2024 Active omeprazole (PriLOSEC) [address] capsule Take 1 capsule (20 mg total) by mouth every other day. Do not crush or chew. Active acetaminophen (TYLENOL 8 HOUR) 650 mg 8 hr tablet Take 1 tablet (650 mg total) by mouth at bedtime. Do not crush, chew, or split. Active multivitamin tablet Take 1 tablet by mouth 1 (one) time each day. Active Encounters Date Type Department Care Team Description 06/01/2024 Telephone Gastroenterology - [place] [address] [facility] [address] [place] [address] Gaby Padgett LPN Anticoagulation (Colonoscopy on 06/28/[address] Javier) 03/26/2024 Telephone Gastroenterology - [address] [facility] [address] [facility] [address] [place] [address] Kandi Javier MD from Last 3 Months Social History Tobacco Use Types Packs/Day Years Used Date Smoking Tobacco: Never Assessed Comments Unknown Sex and Gender Information Value Date Recorded Sex Assigned at Not on file Legal Sex Female 11:07 AM EDT Gender Identity Not on file Sexual Orientation Not on file Last Filed Vital Signs Vital Sign Reading Time Taken Comments Blood Pressure - - Pulse - - Temperature - - Respiratory Rate - - Oxygen Saturation - - Inhaled Oxygen Concentration - - Weight 113 kg (250 lb) 03/23/2024 11:00 AM EST Height 162.6 cm (5' 4 ) 03/23/2024 11:00 AM EST Body Mass Index 42.91 03/23/2024 11:00 AM EST Plan of Treatment Health Maintenance Due Date Last Done Comments Breast Cancer Screening 1950 DTaP,Tdap,and Td Vaccines (1 - Tdap) 1970 Pneumococcal Vaccine: 50+ Years (1 of 1 - PCV) 2001 Zoster Vaccines (1 of 2) 2001 RSV Immunization Adult Patients (1 - Risk 60-74 years 1-dose series) 2011 Depression Screening 10/12/2023 Falls Risk Assessment 10/12/2023 Hepatitis C Screening 10/12/2023 Medicare Annual Wellness Visit 10/12/2023 Osteoporosis Screening (Bone Density Screening) 10/12/2023 Social Influencers of Health Screening 10/12/2023 COVID-19 Vaccine (1 - 2023-2 5 season) 2023 Influenza Vaccine (Season Ended) 2024 Colorectal Cancer Screening: Colonoscopy 03/20/2034 03/20/2024, 05/17/2018 HIB Vaccines Aged Out No longer eligi ble based on patient's age to complete this topic HPV Vaccines Aged Out No longer eligi ble based on patient's age to complete this topic Hepatitis A Vaccines Aged Out No long er eligible based on patient's age to complete this topic Hepatitis B Vaccines Aged Out No long er eligible based on patient's age to complete this topic IPV Vaccines Aged Out No longer eligi ble based on patient's age to complete this topic MMR Vaccines Aged Out No longer eligi ble based on patient's age to complete this topic Meningococcal ACWY Vaccine Aged Out N o longer eligible based on patient's age to complete this topic Meningococcal B Vaccine Aged Out No l onger eligible based on patient's age to complete this topic RSV Immunization Patients Under 20 months Aged Out No longer eligible b ased on patient's age to complete this topic Varicella Vaccines Aged Out No longer eligible based on patient's age to complete this topic Procedures Procedure Name Priority Date/Time Associated Diagnosis Comments COLONOSCOPY Routine 03/20/2024 10:23 AM EST from Last 3 Months Results * COLONOSCOPY (03/20/2024 10:23 AM EST) Anatomical Region Laterality Modality Endoscopy us Historical Provider GI~PROCEDURE ORDERABLES F inal Result from Last 3 Months Insurance MEDICARE [facility] UNICARE MEDICARE ADVANTAGE
--- OUTSIDE RECORDS SUMMARY | 2024-06-15 11:20 | XMS_ITS | Data Portability ---
Author Organization [place] - [facility] Address [address] [facility] [address] [place] [address] Assessment Encounter Date Assessment Date Assessment LastModified by Organization Details LastModified Time 03/19/2024 03/19/2024 Right distal radius fracture, nondisplaced, closed, not at goal [email or web address] Not available 03/19/2024 16:37:55 Plan of Treatment Reminders Order Date Submit Date Provider Last Modified By Organization Details Last Modified Time Details Appointments None recorde d. Lab None recorde d. Referral None recorde d. Procedures None recorde d. Surgeries None recorde d. Imaging XR, wrist - 3 view 025 03/19/19 25 [email or web address] [facility], [address], [place], [address], 08:39:10 Medication Orders None recorde d. Patient TargetsNo targets recorded. Patient Instructions Encounter Date Encounter Id Patient Instructions Last Modified By Organization Details Last Modified Time 03/19/2024 [id number] Today I had a discussion with the patient about treatment going forward. It appears that she is getting callus formation in her fracture is lined up well. I want her to start working on range of motion of her wrist. We are going to switch her to an [facility]. She is returning home to [place] and she says she already has follow-up there. We discussed limiting weight-bearing no more than 1 pound I will see back in clinic if she needs us before she goes back to [place]. Going to start her on vitamin-D and vitamin-C as well. Today's clinic visit represents management of chronic problem is not at goal. Complex decision-making required. [email or web address] Not available 03/19/2024 16:38:53 Reason for Referral None Reported. Results Created Date Observation Date Name Description Value Unit Range Abnormal Flag Note LastModifiedBy Organization Detail LastModifiedTime 03/19/19 25 XR, wrist No observ ation record ed. [email or web address] [facility] [address] [place], [address], 03/19/2024 16:38:09 Result Notes None recorded. Problems Name Problem SNOMED Code Status Onset Date Resolution Date Notes Provider Name and Address Organization Details Recorded Time Closed fracture of distal end of radius 73046886 Active 025 Brandan Borjasirez [facility] 16:30:02 Problem Notes None recorded. Procedures Surgical History None recorded. Imaging Results Imaging Date Name Status LastModified by Organiz ation Details LastModified Time 03/19/2024 XR, wrist completed [email or web address] [facility] [address] [place], [address], 03/19/2024 16:38:09 Procedure Notes None recorded. Medical Equipment None Reported. Allergies Allergen ID Allergen Name Allergen Category Reaction Reaction Severity Criticality Documentation Date Start Date Code Code System Note Provider Name and Address Organization Details Recorded Time 842616 Dilaudid medicatio n Not available Not available Not available 03/19/2024 71097 3 RxNorm Brandan Loz [place], [place] - [facility] 16:01:46 624155 codeine medicatio n Not available Not available Not available 03/19/2024 2670 RxNorm Brandan Alvin [place], [place] - [facility] 16:01:54 Medications Name Sig Start Date Stop Date Status Note LastModified by Organization Details LastModified Time losartan 50 mg tablet TAKE 1 TABLET TWICE A DAY active Not Available Not Available Not Available amoxicillin 500 mg tablet TAKE 4 TABLETS ONE HOUR PRIOR TO DENTAL VISIT active Not Available Not Available No t Available ciclopirox 8 % topical solution PLEASE SEE ATTACHED FOR DETAILED DIRECTIONS active Not Available Not Available N ot Available econazole nitrate 1 % topical cream APPLY TO AFFECTED [...] Not Available Not Available No t Available hydrochlorot hiazide 12.5 mg capsule TAKE 1 CAPSULE DAILY active Not Available Not Available No t Available omeprazole 20 mg capsule,stacey yed release TAKE 1 CAPSULE DAILY active Not Available Not Available No t Available chlorhexidin e gluconate 0.12 % mouthwash SWISH X 1 MINUTE WITH 1 CAPFUL AND SPIT ONCE DAILY DIRECTED active Not Available Not Available Not Available GaviLyte-G 236 gram-22.74 gram-6.74 gram-5.86 gram oral solution TAKE 8 OUNCE BY MOUTH DIRECTED active Not Available Not Available No t Available Eliquis 5 mg tablet TAKE 1 TABLET TWICE A DAY active Not Available Not Available Not Available Jublia 10 % topical solution with applicator APPLY DAILY TO AFFECTED NAILS DIRECTED active Not Available Not Available No t Available Vitals Date Recorded Body height Body mass index (BMI) Body weight Provider Name and Address Organization Details Last Updated DateTime 03/19/2024 162.56 cm 42.6 kg/m2 444427.91 [facility] [place] [facility] 03/19/2024 16:01:32 Social History None recorded. Functional Status None recorded. Mental Status None recorded. Family History Nothing Reported. Medical History No medical history recorded. Gynecological HistoryNo gynecological history recorded. Obstetrics History GPAL:G 0 P 0 0 0 0 Past Encounters Encounter ID Performer Location Encounter Start Date Encounter Closed Date Diagnosis/Indication Diagnosis SNOMED-CT Code Diagnosis ICD10 Code Diagnosis Note [id number] Quentin Liu MD [facility] [place] [address] [place] [address] 03/19/2024 15:49:38 03/19/2024 16:36:27 Pain of right wrist [id number] 23761 M25.531 Closed fra cture of distal end of radius 37470588 S52.591A Health Concerns Section Related Observation LastModified by Organization Detai ls LastModified Time None Recorded Concern Status LastModified by Organization Details LastModified Time None Recorded Advance Directives Directive None Recorded Payers Encounter Date Sequence Insurance Name Policy Number Policy Mckeon Covered Member ID Mckeon Member ID Guarantor Name 03/19/2024 1 [place] Emily Cifuentes [id number] Emily Cifuentes Notes Date Note Type Note Provider Name and Address Organization Details Recorded Time 03/19/2024 text/html Wrist/HandReport e d bypatient.Notes: [employer] right wrist. Pt states she was Feb 12 and she has been in a cast since February 20 2024. She has some pain when she rotates her wrist medially. No pain otherwise. Patient is here for evaluation of a right distal radius fracture. It happened on february 12. She got a cast placed in [place]. She is here for a short while in his returning to [place]. She is right-hand dominant. She says her pain is very well-controlled. No numbness and tingling, no radiating symptoms [place] [address] [facility] DEPT, [place], [address], [facility] [[email or web address]] - [facility] 03/19/2024 16:38:55 OBGyn Episode No OBEpisode recorded.
--- OUTSIDE RECORDS SUMMARY | 2024-06-15 11:20 | XMS_ITS | Encounter Summary ---
Author Organization [facility] Address [address] [place] [address] Care Team Providers Care Lan/Wan Engineer Name Role Phone Unavailable Primary Care Provider Unavailabl e Encounter Details Date Type Department Care Team (Late st Contact Info) Description 01/19/2024 Lab Requisition [facility] - Main Lab [address] [facility] [place] [address] Saran Christie MD [address] [facility] [address] [place] [phone] Gross hematuria Social History Tobacco Use Types Packs/Day Years Used Date Smoking Tobacco: Never Assessed Comments Unknown Sex and Gender Information Value Date Recorded Sex Assigned at Not on file Legal Sex Female 11:07 AM EDT Gender Identity Not on file Sexual Orientation Not on file documented as of this encounter Plan of Treatment Not on file documented as of this encounter Procedures Procedure Name Priority Date/Time Associated Diagnosis Comments AP OUTSIDE CONSULT Routine 01/09/2024 12 :00 AM EST Gross hematuria documented in this encounter Results * Anatomic pathology outside consult (01/09/2024 12:00 AM EST) Final Diagnosis Urine, Voided: Negative for high-grade urothelial carcinoma. 02/03/2024 3:31 PM EST [facility] Clinical Information [id number] Cytology w/reflex UroVysion. 02/03/2024 3:31 PM EST [facility] Gross Description A. Urine, Voided, : [id number] RECD 1 TP SLIDE 02/03/2024 3:31 PM EST [facility] Disclaimer Technical pathology services provided by [facility] at [address], [place] [address] (CLIA #[id number]/S rio Alejandro MD, Well Reactivator Operator) Unless otherwise specified, all tissue is 10% NB formalin fixed and paraffin embedded. 02/03/2024 3:31 PM EST [facility] Tissue Urine specimen from urethra / Unknown 01/09/2024 01/19/2024 11:41 AM EST us Saran Christie MD LAB PATHOLOGY ORDERABLES Final Result [facility] [address] [place] [address], documented in this encounter Visit Diagnoses Diagnosis Gross hematuria documented in this encounter
--- OUTSIDE RECORDS SUMMARY | 2024-06-15 11:20 | XMS_ITS | Encounter Summary ---
Author Organization [facility] Address [address] [place] [address] Care Team Providers Care Well Tender Name Role Phone Unavailable Primary Care Provider Unavailabl e Encounter Details Date Type Department Care Team (Late st Contact Info) Description 03/01/2024 Lab Requisition [facility] - Main Lab [address] [facility] [email or web address] [address] Saran Christie MD [address] [place] [phone] Benign essential microscopic hematuria Social History Tobacco Use Types Packs/Day [...] Associated Diagnosis Comments AP OUTSIDE CONSULT Routine 02/23/2024 12 :00 AM EST Benign essential microscopic hematuria documented in this encounter Results * Anatomic pathology outside consult (02/23/2024 12:00 AM EST) Final Diagnosis A. Urine, Voided, ([id number]): Negative for high grade urothelial carcinoma. 03/14/2024 9:04 AM EST [facility] Clinical Information Gross hematuria R31.0 Cytology w/Reflex FISH 03/14/2024 9:04 AM EST [facility] Gross Description A. Urine, Voided, ([id number]): Received 1 TP (CYTO) 03/14/2024 9:04 AM EST [facility] Disclaimer Unless otherwise specified, all tissue is 10% NB formalin fixed and paraffin embedded. Technical pathology services provided by [facility] at [address] [place] [address] (CLIA #[id number]/S rio Alejandro MD, Production Editor) 03/14/2024 9:04 AM EST [facility] Tissue Urine specimen from urethra / Unknown 02/23/2024 03/01/2024 1:12 PM EST us Saran Christie MD LAB PATHOLOGY ORDERABLES Final Result [facility] [address] [place] [address], documented in this encounter Visit Diagnoses Diagnosis Benign essential microscopic hematuria documented in this encounter
== END 2024-06-15 11:23 | disposition home or self-care (01) ==
LOC: HO.HMCHD 10:17
PROVIDERS: PCP Internal Medicine; Visit Provider Internal Medicine
DX: I48.0 Paroxysmal atrial fibrillation (principal); R10.13 Epigastric pain; K63.5 Polyp of colon

== ENCOUNTER → 2024-06-15 10:17 | Outpatient (BNVA) | payer MEDICARE, OTHER, SELFPAY | PROVIDERS: PCP Internal Medicine; Visit Provider Internal Medicine | DX: I10 Essential (primary) hypertension (principal); I48.0 Paroxysmal atrial fibrillation; G62.9 Polyneuropathy, unspecified; M19.90 Unspecified osteoarthritis, unspecified site; J45.909 Unspecified asthma, uncomplicated; R10.13 Epigastric pain; K63.5 Polyp of colon; Z86.718 Personal history of other venous thrombosis and embolism | CPT/HCPCS: 96127; 99202 ==

== ENCOUNTER 2024-08-31 09:15 | Outpatient (AMB) | payer MEDICARE, OTHER, SELFPAY ==
[2024-08-31 09:05] VITALS: BP 126/78; PULSE 69; TEMP 36.4; O2SAT 99; BMI 41.9
--- NOTE | 2024-08-31 09:05 | A.OFFPC_ITS ---
Vital Signs 08/31/24 09:05 Height 5 ft 4 in Weight 244 lb BMI 41.9 BP 126/78 Blood Pressure Location Rt brachial Position Sitting Pulse 69 Pulse Source Pulse Oximeter Temp 97.6 F Temp Source Axillary Pulse Oximetry (%) 99 Oxygen Delivery Method Room Air Intake Visit Reasons: Routine Operating Room Assistant Required: No Accompanied by: Self / Same As Patient Allergies morphine Allergy (Unknown, Verified 08/31/24 09:06) Unknown hydromorphone (From DILAUDID) Adverse Reaction (Intermediate, Verified 08/31/24 09:06) vomiting Tobacco use date assessed: 08/31/24 Fall risk assessment: No Falls in past year Last assessed Fall Risk: 08/31/24 Dental Screening Dental Screen Date: 08/31/24 Did you have a dental visit in the last 12 months?: Yes Did you have a dental problem in the last 6 months where you did not have access to dental care?: No HPI HPI Comments History of Present Illness Details 74 year old female with a 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 presenting for ER follow up CV: stable on eliquis, hctz, losartan, metoprolol. She was seen in [facility] ER on 06/07/24 for palpitations and elevated heart rate. She had been on holter outpatient. [employer] had picked up irregular rhythm. In ER afib with rvr. cxr normal. Rate controlled in ER with metoprolol. Sent home with metoprolol 12.5mg daily. She was seen by cardiology 06/14/24. She underwent recent ablation. Off amiodarone 200mg twice daily. MSK: Left knee pain. Gets injections Continues to have dyspepsia-she has appt scheduled with GI in September. Colonoscopy-2018, postponed in 2023 due to tx with eliquis for VTE. ROS see HPI PHYSICAL EXAM: GENERAL: Alert and oriented x 3. NAD EYES: EOMI. Anicteric. HENT: Moist mucous membranes. No scleral icterus. No cervical lymphadenopathy. LUNGS: Clear to auscultation bilaterally. CARDIOVASCULAR: Regular rate and rhythm. No murmur. No JVD. ABDOMEN: Soft, non-tender +bs EXTREMITIES: No edema. Non-tender. SKIN: No rashes or lesions. Warm. NEUROLOGIC: No focal neurological deficits. CN II-XII grossly intact PSYCHIATRIC: Cooperative. Appropriate mood and affect [facility] Surgical History History of colonoscopy (~05/17/18) Family History Mother CHF (congestive heart failure) Dementia Diabetes Pacemaker Father HTN (hypertension) BPH (benign prostatic hyperplasia) Social History Housing: House Patient Tobacco Use Status: Former Tobacco user e-Cigarette/Vaping Use: Former Use service: No Current occupational status: retired Cognitive needs: Yes (cane) Hearing needs: No Vision needs: Yes (rx glasses) Questionnaire PHQ-9 Over the last 2 weeks, how often have you been bothered by any of the following problems? 1. Little interest or pleasure in doing things: not at all 2. Feeling down, depressed, or hopeless: several days (pt has some anxiety ) 3. Trouble falling or staying asleep, or sleeping too much: nearly every day 4. Feeling tired or having little energy: several days 5. Poor appetite or overeating: nearly every day (overeating) 6. Feeling bad about yourself - or that you are a failure or have let yourself or your family down: not at all 7. Trouble concentrating on things, such as reading the newspaper or watching television: not at all 8. Moving or speaking so slowly that other people could have noticed. Or the opposite - being so fidgety or restless that you have been moving around a lot more than usual: not at all 9. Thoughts that you would be better off or of hurting yourself in some way: not at all Total score: 8 Depression Screening Interpretation: Positive Depression Screening Follow-up: Existing condition Depression Screening Done: Yes 59924 - PHQ-9 Billing: Yes Source: Developed by Drs. John Dee, Emily Montero, You Amaral and colleagues, with an educational priscila from [employer]. Thrive Questionnaire Date Thrive assessed: 08/31/24 I am a: Patient Within the past 12 months, did the food you bought not last and you didn't have the money to get more?: Never true Within the past 12 months, did you worry whether your food would run out before you got money to buy more?: Never true Do you have trouble paying for medicines?: No Do you have trouble getting transportation to medical appointments?: No Do you have trouble paying your heating and electricity bill?: No Do you have trouble taking care of your child, family member or friend?: No Do you have trouble with day-to-day activities such as bathing, preparing meals, shopping, managing finances, etc.?: No Are you currently unemployed and looking for a job?: No Are you interested in more education?: No THRIVE Score: 0 AUDIT C Alcohol Use Questionnaire (AUDIT-C) 1. How often do you have a drink containing alcohol?: Never 3. How often do you have six or more drinks on one occasion?: Never Total Score: 0 EUSEBIO-7 AMB Questionnaire EUSEBIO-7 Date EUSBEIO - 7 assessed: 08/31/24 Feeling nervous, anxious, or on edge: 1 = Several days Not being able to stop or control worryin = Not at all Worrying too much about different things: 1 = Several days Trouble relaxin = Not at all Being so restless that it is hard to sit still: 0 = Not at all Becoming easily annoyed or irritable: 0 = Not at all Feeling afraid as if something awful might happen: 0 = Not at all Total EUSEBIO-7 score (0-4 normal; 5-9 mild; 10-14 moderate; 15-21 severe): 2 Source: Developed by Drs. John Dee, Emily Montero, You Amaral and colleagues, with an educational priscila from [employer]. Physical exam (Primary Care) Vital Signs: Last Vital Signs Temp 97.6 F 08/31/24 09:05 Pulse 69 08/31/24 09:05 BP 126/78 08/31/24 09:05 Pulse Ox 99 08/31/24 09:05 Oxygen Delivery Method Room Air 08/31/24 09:05 BMI result Body Mass Index 41.9 Tobacco/Smoking Status: Tobacco use Status Tobacco use date assessed 08/31/24 08/31/24 09:07 Patient Tobacco Use Status Former Tobacco user 08/31/24 09:07 e-Cigarette/Vaping Use Former Use 08/31/24 09:07 PHQ-9: PHQ-9 Score PHQ-9: Total score 8 08/31/24 09:41 Depression Screening Interpretation: Positive Depression Screening Follow-up: Existing condition Thrive Assessment: Date of Thrive Assessment Date Thrive assessed 08/31/24 08/31/24 09:07 Coding Level of Care Code Est Pt Level 4 (54138) Diagnoses Paroxysmal atrial fibrillation I48.0 Dyspepsia R10.13 Additional Codes PHQ-9 - 55615 - PHQ-9 Billing: Yes ([id number]) Assessment & Plan Assessment & Plan (1) Paroxysmal atrial fibrillation: Code(s): I48.0 - Paroxysmal atrial fibrillation Category: Medical (2) Dyspepsia: Code(s): R10.13 - Epigastric pain Category: Medical Plan 74 year old for follow up. Interval history reviewed HTN, afib-off amiodarone. following with cardiology. BP is well controlled. Orders: Orders Lipid Panel 08/31/24 G62.9 - Polyneuropathy, unspecified, I48.0 - Paroxysmal atrial fibrillation, K63.5 - Polyp of colon, R10.13 - Epigastric pain Comprehensive Met. Panel 08/31/24 G62.9 - Polyneuropathy, unspecified, I48.0 - Paroxysmal atrial fibrillation, K63.5 - Polyp of colon, R10.13 - Epigastric pain Complete Blood Count Auto Diff 08/31/24 G62.9 - Polyneuropathy, unspecified, I48.0 - Paroxysmal atrial fibrillation, K63.5 - Polyp of colon, R10.13 - Epigastric pain TSH reflex Free T4 08/31/24 G62.9 - Polyneuropathy, unspecified, I48.0 - Paroxysmal atrial fibrillation, K63.5 - Polyp of colon, R10.13 - Epigastric pain
--- OUTSIDE RECORDS SUMMARY | 2024-08-31 09:20 | XMS_ITS | Encounter Summary ---
Author Organization [facility] Address [address] [place] [address] Care Team Providers Care Transmission Supervisor Name Role Phone Miranda Patel MD Primary Care Provider [phone] Encounter Details Date Type Department Care Team (Late st Contact Info) Description 03/01/2024 Lab Requisition [facility] - Main Lab [address] [facility] [place] [place] [phone] Saran Christie MD [address] [facility] [address] [place] [phone] Benign essential microscopic hematuria Social History Tobacco Use Types Packs/Day Years Used Date Smoking Tobacco: Never Assessed Comments Unknown Sex and Gender Information Value Date Recorded Sex Assigned at Not on file Legal Sex Female 11:07 AM EDT Gender Identity Not on file Sexual Orientation Not on file documented as of this encounter Plan of Treatment Upcoming Encounters Date Type Department Care Team (Late st Contact Info) Description 09/21/2024 8:00 AM EDT Office Visit Gastroenterology - [address] [facility] [address] [place] [phone] Kandi Javier MD [address] [facility] [address] [place] [address] documented as of this encounter Procedures Procedure Name Priority Date/Time Associated Diagnosis Comments AP OUTSIDE CONSULT Routine 02/23/2024 12 :00 AM EST Benign essential microscopic hematuria documented in this encounter Results * Anatomic pathology outside consult (02/23/2024 12:00 AM EST) Final Diagnosis A. Urine, Voided, ([id number]): Negative for high grade urothelial carcinoma. 03/14/2024 9:04 AM [facility] Clinical Information Gross hematuria R31.0 Cytology w/Reflex FISH 03/14/2024 9:04 AM [facility] Gross Description A. Urine, Voided, ([id number]): Received 1 TP (CYTO) 03/14/2024 9:04 AM [facility] Disclaimer Unless otherwise specified, all tissue is 10% NB formalin fixed and paraffin embedded. Technical pathology services provided by [facility] at [address], [place] [address] (CLIA #[id number]/S rio Alejandro MD, Switch Tender) 03/14/2024 9:04 AM [facility] Tissue Urine specimen from urethra / Unknown 02/23/2024 03/01/2024 1:12 PM EST us Saran Christie MD LAB PATHOLOGY ORDERABLES Final Result [facility] [address] [place] [address], documented in this encounter Visit Diagnoses Diagnosis Benign essential microscopic hematuria documented in this encounter Care Teams Transmission Supervisor Relationship Specialty Start Date End Date Miranda Patel MD [address] [place] [phone] PCP - General Internal Medicine 06/21/24 documented as of this encounter
== END 2024-08-31 10:08 | disposition home or self-care (01) ==
LOC: HO.HMCHD 09:16
PROVIDERS: PCP Internal Medicine; Visit Provider Internal Medicine
DX: I48.0 Paroxysmal atrial fibrillation (principal); R10.13 Epigastric pain

== ENCOUNTER → 2024-08-31 09:15 | Outpatient (BNVA) | payer MEDICARE, OTHER, SELFPAY | PROVIDERS: PCP Internal Medicine; Visit Provider Internal Medicine | DX: I48.0 Paroxysmal atrial fibrillation (principal); R10.13 Epigastric pain; I10 Essential (primary) hypertension; M25.562 Pain in left knee; Z86.711 Personal history of pulmonary embolism; Z86.718 Personal history of other venous thrombosis and embolism; Z79.01 Long term (current) use of anticoagulants; Z79.899 Other long term (current) drug therapy; Z13.31 Encounter for screening for depression; Z13.30 Encounter for screening examination for mental health and behavioral disorders, unspecified | CPT/HCPCS: 96127; 99212 ==

== ENCOUNTER 2025-01-24 10:18 | Outpatient (REF) | payer MEDICARE, OTHER, SELFPAY ==
--- NOTE | ~2025-01-24 | US_ITS ---
EXAMINATION: US THYROID HISTORY: E04.1 - Nontoxic single thyroid nodule TECHNIQUE: Real-time grayscale ultrasound imaging was performed and images were reviewed. COMPARISON: There are no prior studies available for comparison. FINDINGS: SIZE: The right thyroid lobe measures 5.1 x 2.3 x 2.1 cm. The left thyroid lobe measures 4.8 x 2.3 x 1.9 cm. The isthmus measures 4 mm. FLOW: Flow to the gland is normal. ECHOGENICITY: The echotexture of the gland is homogeneous. NODULES: Multiple cysts are seen including a 1.7 x 1.1 x 1.7 cm cyst in the midportion of the right thyroid lobe, a 7 x 5 x 8 mm cyst in the midportion of the right thyroid lobe, a 9 x 5 x 8 mm cyst in the midportion of the left thyroid lobe, and a 4 x 3 x 3 mm cyst at the upper pole of the left thyroid lobe. An 8 x 5 x 8 mm spongiform nodule is seen at the lower pole of the right thyroid lobe. No solid nodules are identified. US/US thyroid IMPRESSION: Multiple thyroid cysts and spongiform nodule on the right as described. No solid nodules are identified. ACR TI-RADS Guidelines TR1 (0 points): Benign. No follow-up or biopsy required TR2 (2 points): Not Suspicious. No biopsy or follow up indicated TR3 (3 points): Mildly Suspicious. FNA if >= 2.5 cm, Follow if >= 1.5 cm TR4 (4-6 points): Moderately Suspicious. FNA if >= 1.5 cm, Follow if >= 1.0 cm TR5 (>=7 points): Highly Suspicious. FNA if >= 1.0 cm, Follow if >= 0.5 cm Electronically signed by: John Lomeli MD 01/24/2025 01:55 PM EST
== END 2025-01-24 10:19 | disposition home or self-care (01) ==
LOC: HO.HMGCX 10:18
PROVIDERS: PCP Internal Medicine; Visit Provider Internal Medicine
DX: E04.1 Nontoxic single thyroid nodule (principal)
CPT/HCPCS: 76536

== ENCOUNTER → 2025-01-24 10:20 | Outpatient (BNV) | payer MEDICARE, OTHER, SELFPAY | PROVIDERS: PCP Internal Medicine; Visit Provider Radiology Diagnostic Radiology | DX: E04.2 Nontoxic multinodular goiter (principal) | CPT/HCPCS: 76536 ==

== ENCOUNTER → 2025-02-12 14:20 | Outpatient (AMB) | payer MEDICARE, OTHER, SELFPAY ==
--- OUTSIDE RECORDS SUMMARY | 2025-02-10 23:59 | XMS_ITS | Continuity of Care Document ---
Author Organization [facility] Address [address] [place] [address]- Care Team Providers Care Fitness Studies Teacher Name Role Phone Amanda DOMINUGEZ, Miranda Valdez Primary Care Physician Encounter [facility] Date(s): 01/11/25 - 02/10/25 [facility] Care [address] [place] [id number] Encounter Type: Triage Allergies, Adverse Reactions, Alerts Substance Criticality Severity Reaction Reaction Severity Status codeine Active morphine nausea/vomiting Acti ve Dilaudid nausea Active Immunizations Given and Recorded Vaccine Date Status Refusal Reason SARS-CoV-2 (COVID-19) mRNA-1273 vaccine 06/22/21 R ecorded SARS-CoV-2 (COVID-19) mRNA-1273 vaccine 12/23/20 R ecorded SARS-CoV-2 (COVID-19) mRNA-1273 vaccine 05/15/20 R ecorded SARS-CoV-2 (COVID-19) mRNA-1273 vaccine 04/16/20 R ecorded influenza virus vaccine, inactivated 11/03/20 Enoch rded influenza virus vaccine, inactivated 11/12/19 Enoch rded influenza virus vaccine, inactivated 11/25/18 Enoch rded zoster vaccine, inactivated 02/28/19 Recorded zoster vaccine, inactivated 12/15/18 Recorded pneumococcal 13-valent vaccine 03/13/18 Given Medications Albuterol (Eqv-Proventil HFA) 90 mcg/inh inhalation aerosol 2 puffs, Inhalation, Every 6 hours, # 18 Gm, 0 Refills, Maintenance, 04/02/21 8:57:00 AM EST, [facility]/pharmacy #[id number], Partial fill upon patient request if the prescription is for a schedule II opioid drug., 162, cm, 04/02/21 8:47:00 EST, Height, 120.7, kg, 02/08/21 21:40:00 EST, Dry Weight Start Date: 04/02/21 Status: Ordered Medication Dispense Status: Completed Quantity: 18.0 Unit: g Total Allowed Fills: 1 Fills Dispensed: 0 Indications: Mild intermittent asthma, uncomplicated; alendronate 70 mg oral tablet 1 tablet = 70 mg, By Mouth, Every week, # 12 tablet, 3 Refills, Maintenance, 11/20/24 2:55:00 PM EDT, Tablet, [facility], Partial fill upon patient request if the prescription is for a schedule II opioid drug., 163, cm, 11/01/24 14:15:00 EDT, Height, 109.9, kg, 07/16/24 11:38:00 EDT, Dry Weight Start Date: 11/20/24 Status: Ordered Medication Dispense Status: Completed Quantity: 12.0 Unit: tablet Total Allowed Fills: 4 Fills Dispensed: 0 amiodarone 400 mg oral tablet 1 tablet = 400 mg, By Mouth, Daily, # 90 tablet, 3 Refills, Maintenance, 06/15/24 7:35:00 PM EDT, Tablet, [facility]/pharmacy #[id number], Partial fill upon patient request if the prescription is for a schedule II opioid drug., 163, cm, 06/14/24 10:37:00 EDT, Height, 113.5, kg, 06/07/24 13:18:00 EDT, Dry Weight Start Date: 06/15/24 Status: Ordered Medication Dispense Status: Completed Quantity: 90.0 Unit: tablet Total Allowed Fills: 4 Fills Dispensed: 0 Amoxicillin By Mouth, Maintenance, as needed for dental procedures, 09/11/24 3:06:00 PM EDT Start Date: 09/11/24 Status: Ordered Medication Dispense Status: Completed Total Allowed Fills: 1 Fills Dispensed: 0 Eliquis 5 mg oral tablet See Instructions, 2 tablets by mouth twice daily for 7 days and then 1 tablet By Mouth 2 times a day, # 74 tablet, 0 Refills, Maintenance, 04/04/23 3:47:00 PM EST, Tablet, [facility]/pharmacy #[id number], Partial fill upon patient request if the prescription is for a schedule II opioid drug., 165, cm, 04/04/23 13:26:00 EST, Height, 116, kg, 04/04/23 11:41:00 EST, Dry Weight Start Date: 04/04/23 Status: Ordered Medication Dispense Status: Completed Quantity: 74.0 Unit: tablet Total Allowed Fills: 1 Fills Dispensed: 0 Fiber Choice = 3 Gm, 3 times a day, 0 Refills, Maintenance, 11/01/24 2:15:00 PM EDT, Partial fill upon patient request if the prescription is for a schedule II opioid drug. Start Date: 11/01/24 Status: Ordered Medication Dispense Status: Completed Total Allowed Fills: 1 Fills Dispensed: 0 hydroCHLOROthiazide 12.5 mg oral capsule TAKE 1 CAPSULE BY MOUTH EVERY DAY Start Date: 06/14/24 Status: Ordered Medication Dispense Status: Completed Total Allowed Fills: 1 Fills Dispensed: 0 Jublia Topically, Daily, 0 Refills, Maintenance, 09/11/24 3:06:00 PM EDT, Partial fill upon patient requestif the prescription is for a schedule II opioid drug. Start Date: 09/11/24 Status: Ordered Medication Dispense Status: Completed Total Allowed Fills: 1 Fills Dispensed: 0 losartan 50 mg oral tablet 50 mg, 1, tablet, By Mouth, 2 times a day, # 30 tablet, Refills 0, Maintenance, 02/08/21 9:12:00 [facility], Partial fill upon patient request if the prescription is for a schedule II opioid drug. Start Date: 02/08/21 Status: Ordered Medication Dispense Status: Completed Quantity: 30.0 Unit: tablet Total Allowed Fills: 1 Fills Dispensed: 0 metoprolol 25 mg oral tablet, extended release 12.5 mg, 0.5, tablet, By Mouth, Daily, # 15 tablet, Refills 0, Tot. Refills 0, Maintenance, 256:49:00 PM EDT, Route to Pharmacy Electronically, [facility]/pharmacy #[id number], Partial fill upon patient request if the prescription is for a schedule II opioid drug., 163, cm, 06/07/24 13:18:00 EDT, Height, 113.5, kg, 06/07/24 13:18:00 EDT, Dry Weight Start Date: 06/07/24 Stop Date: 07/07/24 Status: Ordered Medication Dispense Status: Completed Quantity: 15.0 Unit: tablet Total Allowed Fills: 1 Fills Dispensed: 0 Multivitamin 0 Refills, Maintenance, 09/11/24 3:05:00 PM EDT, Partial fill upon patient request if the prescription is for a schedule II opioid drug. Start Date: 09/11/24 Status: Ordered Medication Dispense Status: Completed Total Allowed Fills: 1 Fills Dispensed: 0 omeprazole 20 mg oral delayed release tablet 1 tablet = 20 mg, By Mouth, Daily, PRN Other, 0 Refills, Maintenance, 02/17/17 3:18:51 AM EST Start Date: 02/17/17 Status: Ordered Medication Dispense Status: Completed Total Allowed Fills: 1 Fills Dispensed: 0 Tylenol Extra Strength = 500 mg, By Mouth, Daily, 0 Refills, Maintenance, 02/17/17 3:18:08 AM EST Start Date: 02/17/17 Status: Ordered Medication Dispense Status: Completed Total Allowed Fills: 1 Fills Dispensed: 0 Valium 2 mg oral tablet 2 mg, 1, tablet, By Mouth, Every 8 hours, Refills 0, Maintenance, 09/11/24 3:06:00 PM EDT, Partial fill upon patient request if the prescription is for a schedule II opioid drug. Start Date: 09/11/24 Status: Ordered Medication Dispense Status: Completed Total Allowed Fills: 1 Fills Dispensed: 0 Problem List Condition Confirmation Course Effective Dates Status H ealth Status Informant Anxiety Confirmed Active Gastroesophageal reflux disease Confirmed Active Hypertension Confirmed Active Mild intermittent asthma Confirmed Active Obesity Confirmed Active Osteoarthritis of both knees Confirmed Active Pulmonary embolism Confirmed Active Severe obesity Confirmed Active Social History Social History Type Response Sexual Sexually involved in last 6 months: No. Gender identity: Female. Smoking Status Former smoker, quit more than 30 days ago; Interested in cessation: No; Patient wants NRT during admission No; Other: quit in the early s; entered on: 02/08/21 Sex Sex Representation Female (finding) Patient Care team information Care Team Personnel Name: Nedra Ivy RN Position: [facility] RN Member Role: Primary Care Nurse Name: Shaina Truong RN Position: [facility] LB Nurse Member Role: Primary Care Nurse Name: Gabino Lee MD Position: [facility] MULTIPLE RESAW OPERATOR MD Member Role: [employer] MULTIPLE RESAW OPERATOR Physician Address: [address] [facility] [address] [place] [address]- [place] Telecom: Name: Jerome Rice RN Position: [facility] RN Member Role: Primary Care Nurse Name: Amanda DOMINGUEZ, Miranda Valdez Position: Reference Physician Member Role: PCP Address: [address] [place] [address]- [place] Telecom: Name: Maurice Moya RN Position: [facility] SN RN Member Role: Primary Care Nurse Care Team Related Persons Name: LEE HAM Insurance Providers Guarantor name: GORDON HAM [employer] Plan Information #: 1 Payer: MEDICARE B Payer Identifier: MAURIZIO Member Number: [id number] Group Number: NA Subscriber Identifier: NA Relationship to Subscriber: self Coverage Type: NA Coverage Verification Date: NA Telecom: NA Address: Health Plan Information #: 2 Payer: [facility] INDEMNITY PLAN Payer Identifier: MAURIZIO Member Number: [id number] Group Number: [id number] Subscriber Identifier: NA Relationship to Subscriber: self Coverage Type: Commercial Indemnity Coverage Verification Date: NA Telecom: Address: [facility]
--- OUTSIDE RECORDS SUMMARY | 2025-02-10 23:59 | XMS_ITS | Continuity of Care Document ---
Author Organization [facility] Address [address] [place] [address]- Care Team Providers Care Addictions Counselor Assistant Name Role Phone Amanda DOMINGUEZ, Miranda Valdez Primary Care Physician [phone] Encounter [facility] ACCT R [id number] Date(s): 01/11/25 - 02/10/[address] [address]- Attending Physician: Risa Scanlon Admitting Physician: Risa Scanlon Referring Physician: Risa Scanlon Encounter Type: Pre-Outpt Allergies, Adverse Reactions, Alerts Substance Criticality Severity [...] 0 Refills, Maintenance, 04/02/21 8:57:00 AM EST, [facility]/pharmacy #[id number], Partial fill upon patient request if [...] Refills, Maintenance, 11/20/24 2:55:00 PM EDT, Tablet, [facility], Partial fill upon patient request if [...] Refills, Maintenance, 06/15/24 7:35:00 PM EDT, Tablet, [id number] Partial fill upon patient request if [...] Refills, Maintenance, 04/04/23 3:47:00 PM EST, Tablet, [facility]/pharmacy #[id number], Partial fill upon patient request if [...] 256:49:00 PM EDT, Route to Pharmacy Electronically, [facility]/pharmacy #[id number], Partial fill upon patient request if [...] admission No; Other: quit in the early 's; entered on: 02/08/21 Sex Sex Representation Female (finding) Patient Care team information Care Team Personnel Name: Nedra Ivy RN Position: [facility] RN Member Role: Primary Care Nurse Name: Shaina Truong RN Position: [facility] Nurse Member Role: Primary Care Nurse Name: Gabino Lee MD Position: [facility] ALUMINUM MOLDER MD Member Role: Lifetime ALUMINUM MOLDER Physician Address: [facility] [address]- Telecom: Name: Jerome Rice RN Position: [facility] RN Member Role: Primary Care Nurse Name: Miranda Patel MD Position: Reference Physician Member Role: PCP Address: [address] [place] [address]- Telecom: Name: Maurice Moya RN Position: [facility] SN RN Member Role: Primary Care Nurse Care Team Related Persons Name: LEE HAM Insurance Providers Guarantor name: GORDON HAM Health Plan Information #: 1 Payer: MEDICARE B Payer Identifier: Member Number: [id number] Group Number: NA Subscriber Identifier: [id number] Relationship to Subscriber: self Coverage Type: NA Coverage Verification Date: NA Telecom: NA Address: NA Health Plan Information #: 2 Payer: [facility] INDEMNITY PLAN Payer Identifier: Member Number: [id number] Group Number: [id number] Subscriber Identifier: [id number] Relationship to Subscriber: self Coverage Type: Commercial Indemnity Coverage Verification Date: NA Telecom: NA Address: [facility]
--- OUTSIDE RECORDS SUMMARY | 2025-02-10 23:59 | XMS_ITS | Continuity of Care Document ---
Author Organization [facility] Address [address] [place] [address]- Care Team Providers Care Social Science Analyst Name Role Phone Amanda DOMINGUEZ, Miranda Valdez Primary Care Physician [place] [facility] [place]): [place] 02/10/25 [facility] [address] [place] [address] Encounter Type: Triage Allergies, [...] 0 Refills, Maintenance, 04/02/21 8:57:00 AM EST, [facility]/pharmacy #[id number], Partial fill upon patient request if [...] Refills, Maintenance, 11/20/24 2:55:00 PM EDT, Tablet, [facility], Partial fill upon patient request if [...] Refills, Maintenance, 06/15/24 7:35:00 PM EDT, Tablet, [facility]/pharmacy #[id number], Partial fill upon patient request if [...] Refills, Maintenance, 04/04/23 3:47:00 PM EST, Tablet, [facility]/pharmacy #[id number], Partial fill upon patient request if [...] 256:49:00 PM EDT, Route to Pharmacy Electronically, [facility]/pharmacy #[id number], Partial fill upon patient request if [...] Team Personnel Name: Nedra Ivy RN Position: [facility] RN Member Role: Primary Care Nurse Name: Shaina Truong RN Position: [facility] LB Nurse Member Role: Primary Care Nurse Name: Gabino Lee MD Position: [facility] CHEMICAL DEPENDENCY NURSE MD Member Role: [facility] CHEMICAL DEPENDENCY NURSE Physician Address: [facility] [address] [place] [address]- Telecom: Name: Jerome Rice RN Position: [facility] RN Member Role: Primary Care Nurse Name: Amanda DOMINGUEZ, Miranda Valdez Position: Reference Physician Member Role: PCP Address: [address] [place] [address]- [place] Telecom: Name: Maurice Moya RN Position: [facility] SN RN Member Role: Primary Care Nurse Care Team Related Persons Name: LEE HAM Insurance Providers Guarantor name: GORDON HAM [employer] Plan Information #: 1 Payer: MEDICARE B Payer Identifier: MAURIZIO Member Number: [id number] Group Number: NA Subscriber Identifier: NA Relationship to Subscriber: self Coverage Type: NA Coverage Verification Date: NA Telecom: NA Address: Health Plan Information #: [address] [facility] [employer] PLAN Payer Identifier: MAURIZIO Member Number: [id number] Group Number: [id number] Subscriber Identifier: NA Relationship to Subscriber: self Coverage Type: Commercial Indemnity Coverage Verification Date: Telecom: Address: [facility]
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
--- OUTSIDE RECORDS SUMMARY | 2025-02-12 18:05 | XMS_ITS | Encounter Summary ---
Author Organization [facility] Address [address] [place] [address] Care Team Providers Care Sales Apprentice Name Role Phone Miranda Patel MD Primary Care Provider [phone] Encounter Details Date Type Department Care Team (Late st Contact Info) Description 01/19/2024 Lab Requisition [facility] - Main Lab [address] [facility] [place] [phone] Saran Christie MD [address] [place] [phone] Gross hematuria Social History Tobacco Use Types Packs/Day Years Used Date Smoking Tobacco: Never Assessed Comments Unknown Sex and Gender Information Value Date Recorded Sex Assigned at Female 10/25/2024 7:29 AM EDT Legal Sex Female 11:07 AM EDT Gender Identity Female 10/25/2024 7:29 AM EDT Sexual Orientation Straight 10/25/2024 7: 29 AM EDT documented as of this encounter Plan of Treatment Not on file documented as of this encounter Procedures Procedure Name Priority Date/Time Associated Diagnosis Comments AP OUTSIDE CONSULT Routine 01/09/2024 12 :00 AM EST Gross hematuria documented in this encounter Results * Anatomic pathology outside consult (01/09/2024 12:00 AM EST) Final Diagnosis Urine, Voided: Negative for high-grade urothelial carcinoma. 02/03/2024 3:31 PM EST [facility] at 1531 EST Clinical Information [id number] Cytology w/reflex UroVysion. 02/03/2024 3:31 PM EST [facility] Gross Description A. Urine, Voided, : [id number] RECD 1 TP SLIDE 02/03/2024 3:31 PM EST [facility] Disclaimer Technical pathology services provided by [facility] at [address], [place] [address] (CLIA #[id number]/S rio Alejandro MD, Inside Sales Lead) Unless otherwise specified, all tissue is 10% NB formalin fixed and paraffin embedded. 02/03/2024 3:31 PM [facility] Tissue Urine specimen from urethra / Unknown 01/09/2024 01/19/2024 11:41 AM EST us Saran Christie MD LAB PATHOLOGY ORDERABLES Final Result [facility] [address] [place] [address], documented in this encounter Visit Diagnoses Diagnosis Gross hematuria documented in this encounter Care Teams Sales Apprentice Relationship Specialty Start Date End Date Miranda Patel MD [address] [place] [address] PCP - General Internal Medicine 06/21/24 documented as of this encounter
--- OUTSIDE RECORDS SUMMARY | 2025-02-12 18:05 | XMS_ITS | Encounter Summary ---
Author Organization [facility] Address [address] [place] [address] Care Team Providers Care Problem Manager Name Role Phone Miranda Patel MD Primary Care Provider [phone] Encounter Details Date Type Department Care Team (Late st Contact Info) Description 03/01/2024 Lab Requisition [facility] - Main Lab [address] [facility] [place] [phone] Saran Christie MD [address] [place] [address] Benign essential microscopic hematuria Social History Tobacco [...] AM EST) Final Diagnosis A. Urine, Voided, ([id number]): Negative for high grade urothelial carcinoma. 03/14/2024 9:04 AM [facility] at 0904 EST Clinical Information Gross hematuria R31.0 Cytology w/Reflex FISH 03/14/2024 9:04 AM [facility] Gross Description A. Urine, Voided, ([id number]): Received 1 TP (CYTO) 03/14/2024 9:04 AM [facility] Disclaimer Unless otherwise specified, all tissue is 10% NB formalin fixed and paraffin embedded. Technical pathology services provided by [facility] [address] [facility] [address] [place] [address] (CLIA #[id number]/S rio Alejandro MD, Rodent Control Worker) 03/14/2024 9:04 AM [facility] Tissue Urine specimen from urethra / Unknown 02/23/2024 03/01/2024 1:12 PM EST us Saran Christie MD LAB PATHOLOGY ORDERABLES Final Result [facility] [address] [place] [address], documented in this encounter Visit Diagnoses Diagnosis Benign essential microscopic hematuria documented in this encounter Care Teams Problem Manager Relationship Specialty Start Date End Date Miranda Patel MD [address] [place] [address] PCP - General Internal Medicine 06/21/24 documented as of this encounter
--- OUTSIDE RECORDS SUMMARY | 2025-02-12 18:05 | XMS_ITS | Clinical Summary ---
Author Organization [facility] Address [address] [place] [address] Phone Care Team Providers Care Attendant Honor Bar Name Role Phone Miranda Patle MD Primary Care Provider [phone] Allergies Active Allergy Reactions Criticality Noted Date Comments Caffeine Palpitations 03/23/2024 Codeine GI intolerance 03/23/2024 Hydromorphone GI intolerance 03/23/2024 Morphine Nausea And Vomiting 09/21/2024 Medications nystatin (MYCOSTATIN) cream APPLY TWICE DAILY TO AFFECTED AREAS ON GROIN, ABDOMEN AND BREASTS. 08/15/19 24 Active losartan (COZAAR) 50 mg tablet Take 1 tablet (50 mg total) by mouth 2 (two) times a day. 01/25/20 24 Active hydroCHLOROthia zide (MICROZIDE) 12.5 mg capsule Take 1 capsule (12.5 mg total) by mouth 1 (one) time each day. 01/05/20 24 Active Eliquis 5 mg tablet TAKE 2 TABLETS BY MOUTH TWICE A DAY X 7 DAYS, THEN 1 TABLET TWICE DAILY 04/04/19 24 Active busPIRone (BUSPAR) 10 mg tablet Take 1 tablet (10 mg total) by mouth 2 (two) times a day if needed. 04/10/19 24 Active amoxicillin (AMOXIL) 500 mg tablet TAKE 4 TABLETS ONE HOUR PRIOR TO DENTAL VISIT 12/12/19 24 Active econazole nitrate 1 % cream apply to affected area twice a day as needed 08/29/19 24 Active Jublia 10 % solution with applicator APPLY DAILY TO AFFECTED NAILS DIRECTED 03/12/19 25 Active omeprazole (PriLOSEC) [address] capsule Take 1 capsule (20 mg total) by mouth every other day. Do not crush or chew. Active acetaminophen (TYLENOL 8 HOUR) 650 mg 8 hr tablet Take 0.5 tablets by mouth at bedtime. Do not crush, chew, or split. Active multivitamin tablet Take 1 tablet by mouth 1 (one) time each day. Active metoprolol succinate (TOPROL-XL) 25 mg 24 hr tablet Take 0.5 tablets (12.5 mg total) by mouth 1 (one) time each day. 09/11/19 25 Active LORazepam (ATIVAN) 0.5 mg tablet Take 1 tablet (0.5 mg total) by mouth. 06/16/19 25 Active diazePAM (VALIUM) 5 mg tablet Take 0.5 tablets (2.5 mg total) by mouth every 8 (eight) hours if needed for anxiety. Active albuterol HFA (PROAIR HFA ; PROVENTIL HFA ; VENTOLIN HFA) 90 mcg/actuation inhaler Inhale 2 puffs by mouth every 6 (six) hours if needed for wheezing. Active senna (SENOKOT) 8.6 mg tablet Take 1 tablet (8.6 mg total) by mouth 1 (one) time each day if needed for constipation. Active docusate sodium (COLACE) 50 mg capsule Take 1 capsule (50 mg total) by mouth 2 (two) times a day. Active BENEFIBER, WHEAT DEXTRIN, ORAL Take by mouth 1 (one) time each day. 2 tsps Active Clenpiq 10 mg-3.5 gram- 12 gram/160 mL solution Take 2 Bottles by mouth See administration instructions. 320 mL 10/19/19 25 Active hydrocortisone (ANUSOL-HC) 2.5 % rectal creamIndication s:Grade I hemorrhoids Insert into the rectum 2 (two) times a day for 10 days. 30 g 1 11/01/19 25 Active Surgical History Surgery Date Site/Laterality Comments CHOLECYSTECTOMY COLONOSCOPY 05/17/2018 Normal with normal colon biopsies JOINT REPLACEMENT Right right knee COLONOSCOPY 06/05/2013 Normal COLONOSCOPY 04/04/2008 Normal TONSILLECTOMY CARDIAC ABLATION Medical History Medical History Date Comments Cholelithiasis Hypertension GERD (gastroesophageal reflux disease) Asthma Anxiety Arthritis Pulmonary embolism ([facility] V24, [facility] V28) Fatty liver Basal cell adenocarcinoma Kidney stone Family History Medical History Relation Name Comments Alcohol abuse Brother 1 xx Hypertension Brother 2 xxx Colon polyps Father xxxx Diabetes Father xxxx Heart attack Father xxxx Hypertension Father xxxx Diabetes Mother xxx Hypertension Mother xxx Colon polyps Sister Relation Name Status Comments Brother 1 xx Brother 2 xxx Father xxxx Mother xxx Sister Social History Tobacco Use Types Packs/Day Years Used Date Smoking Tobacco: Former Cigarettes 1 6 0 02/14/1970 - 02/15/1976 Smokeless Tobacco: Never Alcohol Use Standard Drinks/Week Comments Never 0 (1 standard drink = 0.6 oz pur e alcohol) Interpersonal Safety Answer Date Record ed Physical Abuse Unrecognized value 10/25/2024 Verbal Abuse Unrecognized value 10/25/2024 Comments Unknown Sex and Gender Information Value Date Recorded Sex Assigned at Female 10/25/2024 7:29 AM EDT Legal Sex Female 11:07 AM EDT Gender Identity Female 10/25/2024 7:29 AM EDT Sexual Orientation Straight 10/25/2024 7: 29 AM EDT Last Filed Vital Signs Vital Sign Reading Time Taken Comments Blood Pressure 132/75 10/25/2024 9:21 AM EDT Pulse 79 10/25/2024 9:21 AM EDT Temperature 36.8 C (98.2 F) 10/25/2024 9:01 AM EDT Respiratory Rate 16 10/25/2024 9:21 AM EDT Oxygen Saturation 99% 10/25/2024 9:21 AM EDT Inhaled Oxygen Concentration - - Weight 112 kg (248 lb) 10/25/2024 8:13 AM EDT Height 162.6 cm (5' 4 ) 10/25/2024 8:13 AM EDT Body Mass Index 42.57 10/25/2024 8:13 AM EDT Plan of Treatment Health Maintenance Due Date Last Done Comments Breast Cancer Screening 1950 Drug Screen 1950 Non-Opioid Controlled Substance Agreement 1950 DTaP,Tdap,and Td Vaccines (1 - Tdap) 1970 RSV Immunization Adult Patients (1 - Risk 50-74 years 1-dose series) 2001 Pneumococcal Vaccine: 50+ Years (2 of 2 - PPSV23, PCV20, or PCV21) 05/08/2018 03/13/2018 Cholesterol Screening (Lipid Panel) 10/12/2023 Hepatitis C Screening 10/12/2023 Medicare Annual Wellness Visit 10/12/2023 Osteoporosis Screening (Bone Density Screening) 10/12/2023 Social Influencers of Health Screening 10/12/2023 Depression Screening 02/15/2024 Hypertension/CHF/CAD Annual BMP Blood Test 09/21/2024 COVID-19 Vaccine ( season) 2024 01/23/2024, 01/27/2023, 01/26/2022, Additional history exists Influenza Vaccine (#1) 2024 , 11/03/2020, 11/12/2019, Additional history exists Falls Risk Assessment 10/25/2025 10/25/2024 Colorectal Cancer Screening: Colonoscopy 10/25/2029 10/25/2024, 03/20/2024, 05/17/2018 Zoster Vaccines Completed 02/28/2019, 12/15/2018 HIB Vaccines Aged Out No longer eligi [...] 20 months Aged Out No longer eligible based on patient's age to complete this topic Varicella Vaccines Aged Out No longer eligible based on patient's age to complete this topic Procedures Procedure Name Priority Date/Time Associated Diagnosis Comments COLONOSCOPY Routine 10/25/2024 9:00 AM EDT Esophageal dysphagia Dyspepsia Family history of colon polyps, unspecified from Last 3 Months or Most Recently Relevant to Health Maintenance Results * COLONOSCOPY Anesthesia - MAC; [facility] ENDOSCOPY (10/25/2024 9:00 AM EDT) Anatomical Region Laterality Modality Endoscopy 10/25/2024 8:45 AM EDT Impressions 10/26/2024 10:00 AM EDT - The examined portion of the ileum was normal. - Diverticulosis in the sigmoid colon. - Internal hemorrhoids. - The examination was otherwise normal. - No specimens collected. Recommendation: - Repeat colonoscopy in 5-10 years for screening purposes. Narrative 10/26/2024 10:00 AM EDT [facility] GI Patient Name: Emily Ham Procedure Date: 10/25/2024 8:45 AM Date of : 1950 Age: 74 Gender: Female Note Status: Geographic Information System Analyst Override Attending MD: Kandi Javier MD, Procedure Date No Time: 10/25/2024 Procedure: Colonoscopy Indications: Colon cancer screening in patient at increased risk: Family history of 1st-degree relative with colon polyps Providers: Kandi Javier MD Referring MD: Miranda Patel MD, MD Medicines: Propofol per Anesthesia Complications: No immediate complications. Estimated Blood Loss: Estimated blood loss: none. Procedure: Pre-Anesthesia Assessment: - ASA Grade Assessment: III - A patient with severe systemic disease. After I obtained informed consent, the scope was passed under direct vision. Throughout the procedure, the patient's blood pressure, pulse, and oxygen saturations were monitored continuously.The Olympus Pediatric Colonosocpe was introduced through the anus and advanced to the terminal ileum. The colonoscopy was performed without difficulty. The patient tolerated the procedure well. The quality of the bowel preparation was good. Findings: The perianal and digital rectal examinations were normal. The terminal ileum appeared normal. A few medium-mouthed diverticula were found in the sigmoid colon. Internal hemorrhoids were found during retroflexion. The hemorrhoids were Grade I (internal hemorrhoids that do not prolapse). The exam was otherwise without abnormality. Procedure Code(s): --- Professional --- G0105, Colorectal cancer screening; colonoscopy on individual at high risk Diagnosis Code(s): --- Professional --- Z83.71, Family history of colonic polyps CPT copyright 2020 [employer]. All rights reserved. The codes documented in this report are preliminary and upon journeyman level acoustic analyst review may be revised to meet current compliance requirements. Kandi Javier MD 10/25/2024 8:59:42 AM This report has been signed electronically.Kandi Javier MD Number of Addenda: 0 Note Initiated On: 10/25/2024 8:45 AM Scope In: Scope Out: Endoscopy Department at [facility] - [address] [place] [id number] Procedure Note Kandi Javier MD - 10/26/2024 [facility] GI Patient Name: Emily Ham Procedure Date: 10/25/2024 8:45 AM Date of : 1950 Age: 74 Gender: Female Note Status: Geographic Information System Analyst Override Attending MD: Kandi Javier MD, Procedure Date No Time: 10/25/2024 Procedure: Colonoscopy Indications: Colon cancer screening in patient at increasedrisk: Family history of 1st-degree relative with colonpolyps Providers: Kandi Javier MD Referring MD: Miranda Patel MD, MD Medicines: Propofol per Anesthesia Complications: No immediate complications. Estimated Blood Loss: Estimated blood loss: none. Procedure: Pre-Anesthesia Assessment: - ASA Grade Assessment: III - A patient with severe systemic disease. After I obtained informed consent, the scope was passed under direct vision. Throughout theprocedure, the patient's blood pressure, pulse, and oxygen saturations were monitored continuously.The Olympus Pediatric Colonosocpe was introduced through theanus and advanced to the terminal ileum. The colonoscopy was performed without difficulty. The patient tolerated the procedure well. The quality of thebowel preparation was good. Findings: The perianal and digital rectal examinations were normal. The terminal ileum appeared normal. A few medium-mouthed diverticula were found in the sigmoid colon. Internal hemorrhoids were found duringretroflexion. The hemorrhoids were Grade I (internal hemorrhoids that do not prolapse). The exam was otherwise without abnormality. Procedure Code(s): --- Professional --- G0105, Colorectal cancer screening; colonoscopy on individual at high risk Diagnosis Code(s): --- Professional --- Z83.71, Family history of colonic polyps CPT copyright 2020 [employer]. All rights reserved. The codes documented in this report are preliminary and upon journeyman level acoustic analyst reviewmay be revised to meet current compliance requirements. Kandi Javier MD 10/25/2024 8:59:42 AM This report has been signed electronically.Kandi Javier MD Number of Addenda: 0 Note Initiated On: 10/25/2024 8:45 AM Scope In: Scope Out: Endoscopy Department at [facility] - [address] [place] [id number] IMPRESSION: - The examined portion of the ileum was normal. - Diverticulosis in the sigmoid colon. - Internal hemorrhoids. - The examination was otherwise normal. - No specimens collected. Recommendation: - Repeat colonoscopy in 5-10 years for screening purposes. Kandi Javier MD GI~PROCEDURE ORDERABLES Edited Result - Final from Last 3 Months or Most Recently Relevant to Health Maintenance Insurance [place] [id number] MEDICARE [facility] Care Teams Attendant Honor Bar Relationship Specialty Start Date End Date Miranda Patel MD [address] [place] [phone] PCP - General Internal Medicine 06/21/24
== END ==
LOC: HO.HMCFM 14:21
PROVIDERS: PCP Internal Medicine; Visit Provider Internal Medicine
DX: E04.1 Nontoxic single thyroid nodule (principal)